=== PATIENT | male | born 1960 | race Caucasian/White ===

== ENCOUNTER 2025-01-10 01:50 | Inpatient (IN) | payer OTHER, MEDICARE, SELFPAY ==
[2025-01-09 22:58] VITALS: BP 154/64
[2025-01-09 23:09] VITALS: BMI 27.6
[2025-01-09] MEDS: TESSALON PERLES 200 MG PO (23:30)
[2025-01-09] MEDS: DUONEB 3 ML INH (23:30)
[2025-01-09 23:51] LABS: % Basophils 0.1 % (0-2); % Eosinophils 1.1 % (0-6); % Immature Granulocytes 0.3 % (0-0.5); % Lymphocytes 15.7 % (20.5-51.1); % Monocytes 14.9 % (1.7-9.3); % Neutrophils 67.9 % (42.2-75.2); Absolute Eosinophils 0.1 10^3/uL (0-0.7); Absolute Lymphocytes 1.1 10^3/uL (1.2-3.4); Absolute Monocytes 1.1 10^3/uL (0.1-0.6); Absolute Neutrophils 4.8 10^3/uL (1.4-6.5); Hematocrit 43.4 % (39.0-52.0); Hemoglobin 14.8 g/dL (13.0-18.0); Mean Corp Hgb Conc. 34.1 g/dL (33.0-37.0); Mean Corpuscular Hgb 31.8 pg (27.0-31.0); Mean Corpuscular Volume 93.1 fL (80.0-94.0); Mean Platelet Volume 11.2 fL (7.4-10.4); Nucleated Red Blood Cells % 0 % (-); Platelet Count 215 10^3/uL (130-400); Red Blood Cell Count 4.66 10^6/uL (4.70-6.10); Red Cell Dist. Width 12.5 % (11.5-14.5); White Blood Cell Count 7.1 10^3/uL (4.8-10.8)
[2025-01-09 23:53] LABS: ALT (SGPT) 40 U/L (0-50); AST (SGOT) 57 U/L (17-59); Albumin 4.3 g/dl (3.5-5.0); Alkaline Phosphatase 97 U/L (38-126); Blood Urea Nitrogen 19 mg/dl (9-20); Calcium 9.6 mg/dl (8.4-10.2); Carbon Dioxide 27 mmol/L (22-30); Chloride 101 mmol/L (98-107); Estimated Creatinine Clearance 69 ml/min; Glucose 109 mg/dl (70-99); Potassium 4.4 mmol/L (3.5-5.1); Sodium 137 mmol/L (135-145); Total Bilirubin 0.9 mg/dl (0.2-1.3); Total Protein 7.1 g/dl (6.3-8.2); eGFR > 60.00
[2025-01-10] VITALS (18 sets, daily range): BP systolic 106–177; BP diastolic 47–91; BMI 27.6
[2025-01-10 00:07] LABS: Troponin I 0.132 ng/ml
--- NOTE | 2025-01-10 00:17 | ED.GENMED ---
History of Present Illness
General
Chief Complaint: Cough
Source: patient
Exam Limitations: none
Time Seen by Provider: 01/09/25 23:17
Nursing documentation reviewed up to this point in time: agreed with
History of Present Illness
History of Present Illness:
This is a 64-year-old gentleman who has history of insulin requiring diabetes, CAD with prior history of PTCA with stents, hypertension, hyperlipidemia, prior history of pneumonia, GERD. Remote history of multiple trauma after falling out of a tree
2008 with multiple thoracic vertebral fractures requiring surgical repair.
He presents with 4-day history of cough, nasal congestion, generalized aches and chills. Exposed to others with similar symptoms earlier in the week.
Evaluated at urgent care yesterday and tested positive for influenza, started on Tamiflu yesterday.
He continues with significant hacking nonproductive cough with paroxysms of prolonged cough causing shortness of breath, nausea, gagging and significantly poor sleep.
He does note some anterior chest discomfort only noted with coughing.
No leg pain or swelling.
He admits to moderate fatigue but no dizziness nor lightheadedness, no neck nor back pain. No history of chronic lung disease.
He does have history of CAD but denies history of CHF, no history of valvular disorder.
He states his blood sugars are generally well-controlled. Has a CGM. Hemoglobin A1c generally runs 6.9-7.
Past History
Past History
ED Past Medical History: CAD (2 stents), GERD, HTN, Hypercholesterolemia, IDDM, Other (fx of cervical and thoracic spine-multiple trauma after falling from tree 2008) and Other (traumatic accident fx back and neck in hospital 3 mos [facility] ever since
then has had 'something neurologically that I've had this muscular issue in my chest.)
ED Past Surgical History: Cardiac (PTCA with stent x 2), Orthopedic (Cervical and thoracic vertebral fracture repair) and Other (trach, g-tube, fusion of spine-2009/multiple trauma)
Social History
Tobacco: Non-smoker
Alcohol: Occasional
Drug: None
Personal: Single
Living: with family
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
Family History
Family History: Other (Noncontributory)
Phy Exam
Physical Exam
Physical Exam:
GENERAL: 64-year-old gentleman appears his stated age, awake and alert, appears in mild to moderate distress with very frequent hacking cough. Mild dyspnea. Room air pulse ox 91%. Oral temperature 98.7 �F
EYE: pupils equal and reactive. anicteric
NECK: Supple, nontender, no meningismus, no significant adenopathy. No JVD.
ENT: oral mucosa is moist. Scant clear rhinorrhea.
CARDIAC: Regular rate and rhythm. no murmur.
LUNGS: Mild resting tachypnea, frequent hacking nonproductive cough. Fine rhonchi at bases with scattered expiratory wheezing bilaterally
ABDOMEN: Soft, nondistended, without focal tenderness, normoactive BS.
NEUROLOGICAL: Alert and oriented x3, no focal neuro deficits.
SKIN: Mildly hot to touch and dry, normal color, skin intact. No rash.
MUSCULOSKELETAL: No C/C/E. peripheral pulses are full and equal b/l. No palpable tenderness.
PSYCH: Normal and appropriate interaction.
Sepsis
Sepsis Screening
Sepsis Assessment: Sepsis Ruled Out
Sepsis Screen
Sepsis Screen: Sepsis Ruled Out
Date: 01/10/25
Time: 00:40
Course
Orders/Labs/Results
Orders:
Orders
01/09/25 23:27
Benzonatate [Tessalon Perles] 200 mg PO NOW STA
Ipratropium/Albuterol Sulfate [Duoneb] 3 ml INH R NOW STA
CR Chest - 2 Views Urgent
Comment:
Reason For Exam: cough, SOB, flu (+)
01/09/25 23:34
Complete Blood Count/With Diff Urgent
Comprehensive Metabolic Panel Urgent
NT-proBNP Urgent
Troponin I Urgent
01/10/25 00:13
Electrocardiogram (*1) Urgent
Reason for Study: Shortness of Breath
EKG- Treatment ONCE
01/10/25 00:36
Albuterol Sulfate [Ventolin Nebules] 7.5 mg INH R NOW STA
Azithromycin [Zithromax] 500 mg PO NOW STA
CefTRIAXone [Rocephin] 2,000 mg IV NOW STA
Dexamethasone Sod Phosphate [Decadron] 10 mg IV NOW STA
Guaifenesin/Codeine Solution [Robitussin AC] 10 ml PO NOW STA
01/10/25 00:44
Sterile Water [Sterile Water For Injection] 10 ml .ROUTE .STK-MED ONE
01/10/25 00:45
Acetaminophen [Tylenol] 1,000 mg PO NOW STA
01/10/25 01:36
Admit/Transfer Patient As Directed
Co-Sign Provider:
Level of Care: Inpatient admission
Assign to:: Telemetry
Physician / Group: Tommy
Diagnosis: Influenza Pneumonia
Reason for Telemetry: Chest Pain syndromes
Date to Stop Telemetry: 01/12/25
Time to Stop Telemetry: 11:00
Reason for Hospitalization: Influenza Pneumonia
Expected length of stay greater than two midnights?: Yes
ELOS- Estimated Length of Stay in days: 3
I certify the patient meets the requirements for IP care: Yes
PRN Pain Medication Management As Directed
May give lesser potent ordered pain med per pt: Yes
preference::
Protocol:: Medication orders for pain may be administered in a
manner that supports deferring to patient preference
when the pt is:
- Requesting an ordered lesser potent pain medication.
Least to most potent pain medications are defined
as: acetaminophen < NSAID < tramadol < opioids
(morphine, oxycodone, hydromorphone).
- Requesting a lesser dose of the same medication IF
ORDERED.
- Requesting a less intrusive route of administration
if both routes are prescribed by the provider (PO <
IV).
01/10/25 01:38
Code Status As Directed
Resuscitation Status: Full Code
01/10/25 02:33
Acetaminophen [Tylenol] 650 mg PO Q4HPRN PRN
Albuterol [ProAIR HFA INHALER] 2 puff INH R Q4HPRN PRN
CefTRIAXone [Rocephin] 1,000 mg IV Q24H
Dextrose 50%-Water [Dextrose 50% Syringe] 12.5 grams IV T70TGRT PRN
Glucagon [GlucaGen] 1 mg IM PRN PRN
Promethazine/Codeine [Phenergan with Codeine Syrup] 5 ml PO Q4HPRN PRN
01/10/25 02:33
CARDIOLOGY CONSULT Routine
Consulting Provider: Yoni Bazan
Was physician already notified: No
Reason for consult: Abnormal Trop, CAD
Consult Notification Routine
Specialty to Notify: Cardiology
Activity As Directed
Activity Level: Ambulate
Bedside Glucose Monitoring As Directed
Frequency: AC&HS
Additional Instructions:: Change to q6h if pt on TPN, tube feeding or not eating
EKG with chest pain [ECG as needed] As Directed
ECG as needed for:: Chest Pain
I/O [Intake/ Output] As Directed
Frequency: Per unit guidelines
Precautions As Directed
Type of Precautions: Droplet
Vital Signs As Directed
Frequency: Per unit guidelines
Weight As Directed
Frequency: Daily
Oxygen Therapy [O2 Therapy] [RESP] Routine
Titrate/Wean O2 to maintain O2 sat greater than (%): 94
DX Deep Vein Thrombosis Video Routine
01/10/25 02:49
Troponin I Q6H
01/10/25 05:36
Basic Metabolic Panel IN AM
Complete Blood Count/No Diff IN AM
Glycohemoglobin (HgbA1c) IN AM
01/10/25 06:00
EKG [Electrocardiogram (*1)] IN AM
Reason for Study: Chest Pain
2000 calorie (17 carb) Diabetic
At Your Request: Full Participation
01/10/25 07:30
Insulin Aspart Corrective Low [Novolog Flexpen-Low Resistance] See Protocol SC AC
01/10/25 08:00
Aspirin Chewable [Low Strength Aspirin] 81 mg PO DAILY
Atorvastatin [Lipitor] 20 mg PO DAILY
Doxycycline [Vibramycin] 100 mg PO Q12
Guaifenesin [Mucinex] 1,200 mg PO Q12
Losartan [Cozaar] 25 mg PO DAILY
Oseltamivir Phosphate [Tamiflu] 75 mg PO BID
01/10/25 08:33
Troponin I Q6H
01/10/25 14:33
Troponin I Q6H
01/10/25 18:00
Enoxaparin Sodium [Lovenox] 40 mg SC QPM
01/12/25 11:00
DC Protocol for Telemetry ONCE
Abnormal Lab Results
01/09/25
23:34
RBC 4.66 L 10^6/uL
(4.70-6.10)
MCH 31.8 H pg
(27.0-31.0)
MPV 11.2 H fL
(7.4-10.4)
Absolute Lymphs (auto) 1.1 L 10^3/uL
(1.2-3.4)
Absolute Monos (auto) 1.1 H 10^3/uL
(0.1-0.6)
Lymphocytes % 15.7 L %
(20.5-51.1)
Monocytes % 14.9 H %
(1.7-9.3)
Glucose 109 H mg/dl
(70-99)
Troponin I 0.132 H* ng/ml
01/09/25 23:34
01/09/25 23:34
Vital Signs
Temp: 99.9 F
Initial and Last Documented VS:
Initial Vital Signs
Pulse Resp BP Pulse Ox
86 28 154/64 91
01/09/25 22:58 01/09/25 22:58 01/09/25 22:58 01/09/25 22:58
Last Documented Vital Signs
Temp Pulse Resp BP Pulse Ox
99.9 F 75 22 139/66 99
01/10/25 00:45 01/10/25 06:01 01/10/25 06:01 01/10/25 06:01 01/10/25 06:01
MDM/Problems Addressed
Differential Diagnosis Includes:
Patient presents with 4-day history of significant cough, shortness of breath tested positive for influenza yesterday.
Concern for secondary bacterial pneumonia, viral pneumonitis. With history of CAD, hyperlipidemia, diabetes must consider CHF as contributing factor to cough.
Will trial DuoNeb nebulizer and Tessalon Perle.
Will check labs including troponin, BNP and will check chest x-ray.
Chronic conditions affecting care: DM, HTN and CAD
*Radiology
Radiology exam reviewed: preliminary read by ED provider (Chest x-ray shows hazy focal infiltrate right lower lobe. Also note of questionable small nodular density left lower lobe. Normal heart size.)
*Pulse Oximetry
Patient hypoxic: no ( Borderline hypoxia at 91% at rest)
*EKG
Interpreted by ED Provider?: Yes
Comparison EKG: no changes (Unchanged from previous June 2021)
Rate: normal
Rhythm: sinus
[place]: normal axis
Interval: normal interval
QRS Pattern: normal QRS
Ischemia: no ischemia
*[employer] Interpretation
Rate: normal
Interpretation: normal
Rhythm: sinus
*Critical Care Note
Total Time (30-74mins, 75-104mins- exclusive of procedures): Not Applicable
Update Note
Update Note:
00:40
Patient notes only mild temporary improvement in cough after nebulizer treatment and Tessalon Perles.
Continues with significant hacking cough with resting tachypnea and room air pulse ox 91%.
Chest x-ray shows hazy focal infiltrate right lower lobe as well as a questionable small nodular density left lower lobe.
Labs are notable for normal BNP at 50 but troponin mildly elevated at 0.132.
EKG is unremarkable, similar and unchanged to previous 2020.
Repeat lung exam reveals improvement in air movement but continues with expiratory wheezing bilaterally and bilateral lower lobe rhonchi.
Will initiate IV antibiotics for coverage of potential bacterial community-acquired pneumonia. Will add Decadron for wheezing/reactive airway disease.
Will give additional nebulizer treatment and will trial a dose of Robitussin with codeine for cough.
He is noted to have low-grade fever 99.9 �F. Will give a dose of Tylenol.
Will admit to hospitalist service.
ED Attending Note
-
Portions of this chart may have been created with voice recognition software.� Occasional wrong word or��sound alike� substitutions may have occurred due to the inherent limitations of voice recognition software.
Discharge Plan
Departure
Patient Disposition: Admit
Date of Disposition: 01/10/25
Time of Disposition: 00:41
Admit to: Med/Surg
Admit to doctor: Tommy
Presentation/result/management discussed w/ accepting MD/DO: Hospitalist
Condition: Fair
Discharge Problem:
Influenza A, Community acquired pneumonia, Acute hypoxemic respiratory failure, Elevated troponin I level
Interventions
Interventions:
*Risk Screen - Suicide Last Done: 01/09/25 22:58
*General Assessment Last Done: 01/09/25 23:18
*Neglect/Abuse Screening Last Done: 01/09/25 22:58
ED- Fall Risk Assessment Last Done: 01/09/25 23:37
*ED COVID-19 Vaccine History Last Done: 01/09/25 23:18
ED- Pulmonary Assessment Last Done: 01/09/25 23:37
[2025-01-10] MEDS: ZITHROMAX 500 MG PO (00:46)
[2025-01-10] MEDS: VENTOLIN NEBULES 7.5 MG INH (00:47)
[2025-01-10] MEDS: DECADRON 10 MG IV (00:47)
[2025-01-10] MEDS: ROCEPHIN 2000 MG IV (00:47)
[2025-01-10] MEDS: ROBITUSSIN AC 10 ML PO (00:47)
[2025-01-10] MEDS: TYLENOL 1000 MG PO (00:59)
--- NOTE | 2025-01-10 01:42 | HPS.HSE ---
Family Physician
-
Family Physician: Afsaneh Sanchez
Chief Complaint
-
Cough, SOB
History of Present Illness
Patient is a 64y M with PMH significant for ASCVD and DM-I who presents to ED complaining of cough and SOB. Patient states that he started with a cough on Friday. He has had general malaise, myalgias and fatigue. He has noted worsening SOB
and has been unable to sleep due to constant coughing. He presented to Urgent Care yesterday where CXR was reportedly unremarkable, but he tested positive for influenza A. He was started on Tamiflu and has taken 3 doses of this thus far.
Patient felt even worse this evening and presented to the ED for evaluation.
Medical History
Past Medical History
Past Medical History: Reports Other
Additional Past Medical History:
ASCVD
Hypertension
DM-I
GERD
Past Surgical History: Reports Other
Additional Past Surgical History:
PTCA with Stent x 2
Thoracic Fusion (trauma / fractures)
Social History
Tobacco: Non-smoker
Alcohol: Occasional
Drug: None
Family History
Family History: Not pertinent
Allergies / Home Medications
Allergies reflects when Allergies were last updated in [employer].
Home Medications with original date entered in [employer]
Allergy/Medication List:
Allergies
Allergy/AdvReac Type Severity Reaction Status Date / Time
No Known Allergies Allergy Verified 01/10/25 01:21
Home Medications
atorvastatin 20 mg tablet 20 mg PO DAILY 01/13/11
insulin glargine 100 unit/mL subcutaneous solution (Lantus U-100 Insulin) 18 units SC DAILY 01/13/11
insulin lispro 100 unit/mL subcutaneous solution (Humalog U-100 Insulin) 0 - 15 unit SC TID PRN sliding scale coverage 01/13/11
losartan 25 mg tablet 25 mg PO DAILY 08/21/14
aspirin 81 mg tablet 81 mg PO DAILY 01/10/25
Review of Systems
-
History Source: Patient
A 12 point ROS was completed and negative except as noted: Yes
Constitutional: Reports Fever, Fatigue and Chills
EENT: Denies Sore Throat
Respiratory: Reports Cough and Trouble Breathing
Cardiac: Reports Chest Pain (chest 'tightness' with cough); Denies Palpitations or Syncope
Abdomen/GI: Denies Abdominal Pain, Nausea, Vomiting or Diarrhea
: Denies Dysuria or Frequency
Musculoskeletal: Denies Joint Pain or Edema
Neurological: Denies Dizzy or Headache
Psych: Denies Depression or Anxiety
Physical Exam
Vital Signs
Vital Signs
Temp Pulse Resp BP Pulse Ox
99.9 F 93 22 124/89 93
01/10/25 00:45 01/10/25 01:35 01/10/25 00:26 01/10/25 00:06 01/10/25 00:06
Physical Exam
General: Other (64y M in mild distress due to cough / dyspnea.)
HEENT: Moist mucous membranes and PERRLA
Respiratory: Other (Scattered coarse breath sounds. Few wheezes.)
Cardiac: S1/S2, Regular Rhythm and Tachycardia; No Murmur
GI: Soft, Non Tender, Non Distended and Normal Bowel Sounds
Musculoskeletal: No Clubbing, No Cyanosis and No Edema
Neuro: AO x 3
Laboratory Results
-
01/09/25 23:34
01/09/25 23:34
Laboratory Results
Total Bilirubin 0.9 mg/dl (0.2-1.3) 01/09/25 23:34
AST 57 U/L (17-59) 01/09/25 23:34
ALT 40 U/L (0-50) 01/09/25 23:34
Alkaline Phosphatase 97 U/L (38-126) 01/09/25 23:34
Troponin I 0.132 ng/ml H* 01/09/25 23:34
Impression/Plan
-
A/P: Patient is a 64y M with PMH significant for ASCVD and DM-I who presents to ED complaining of cough and SOB x several days.
Influenza A
Pneumonia
Acute Hypoxemic Respiratory Insufficiency secondary to the above
- Admit for further evaluation and treatment.
- Continue Tamiflu.
- Supportive care with O2, albuterol, mucolytics, etc.
- Cover with abx for now given possible R medial base infiltrate / immunocompromise / etc.
- Follow for clinical improvement.
ASCVD
Abnormal Troponin
- Some chest tightness associated with cough / dyspnea.
- EKG with non-specific ST-T changes in the lateral leads.
- Suspect that this is non-ischemic myocardial injury secondary to acute illness.
- Given CAD history will continue to follow troponin.
- Continue daily ASA, statin, etc.
- Cardiology evaluation.
DM-I
- Stable. Continue basal insulin.
- Follow glucose and cover with SSI as needed.
- Update A1C.
Benign Hypertension
- Stable. Continue losartan.
DVT Prophylaxis: Lovenox
Code Status: Full
[2025-01-10 03:40] LABS: Troponin I 0.094 ng/ml
[2025-01-10 05:58] LABS: Hematocrit 38.4 % (39.0-52.0); Hemoglobin 13.3 g/dL (13.0-18.0); Mean Corp Hgb Conc. 34.6 g/dL (33.0-37.0); Mean Corpuscular Hgb 32.4 pg (27.0-31.0); Mean Corpuscular Volume 93.7 fL (80.0-94.0); Mean Platelet Volume 11.4 fL (7.4-10.4); Platelet Count 191 10^3/uL (130-400); Red Cell Dist. Width 12.4 % (11.5-14.5); White Blood Cell Count 6.5 10^3/uL (4.8-10.8)
[2025-01-10 06:16] LABS: Blood Urea Nitrogen 20 mg/dl (9-20); Calcium 9.3 mg/dl (8.4-10.2); Carbon Dioxide 22 mmol/L (22-30); Chloride 99 mmol/L (98-107); Estimated Creatinine Clearance 69 ml/min; Glucose 204 mg/dl (70-99); Potassium 4.4 mmol/L (3.5-5.1); Sodium 135 mmol/L (135-145); eGFR > 60.00
[2025-01-10] MEDS: PHENERGAN WITH CODEINE SYRUP 5 ML PO ×3 (06:22→23:24)
[2025-01-10] MEDS: TAMIFLU 75 MG PO ×2 (08:02→19:02)
[2025-01-10] MEDS: COZAAR 25 MG PO (08:02)
[2025-01-10] MEDS: MUCINEX 1200 MG PO ×2 (08:02→19:02)
[2025-01-10] MEDS: LIPITOR 20 MG PO (08:03)
[2025-01-10] MEDS: LOW STRENGTH ASPIRIN 81 MG PO (08:03)
[2025-01-10] MEDS: VIBRAMYCIN 100 MG PO ×2 (08:04→19:02)
[2025-01-10 08:09] LABS: Glucose - Point of Care 233 mg/dl (70-99)
--- NOTE | 2025-01-10 08:17 | W.PN.HOSP.TC ---
Today's Communication/Plan
-
See plan
Assessment / Plan
Assessment / Plan
Physical Exam
General: Not in acute distress
HEENT: Moist mucous membranes
Respiratory: Scattered coarse breath sounds bilaterally. Few wheezes.
Cardiac: S1/S2, Regular Rhythm and Regular Rate
GI: Soft, Non Tender, Non Distended and Normal Bowel Sounds
Musculoskeletal: No Cyanosis and No Edema
Neuro: AAO x 3
Assessment/Plan
Patient is a 64y M with PMH significant for ASCVD and DM-I who presents to ED complaining of cough and SOB x several days.
Influenza A
Pneumonia
Acute Hypoxemic Respiratory Insufficiency secondary to the above
- Continue Tamiflu.
- Supportive care with O2, albuterol, mucolytics, etc.
- Cover with antibiotics for now given possible right medial base infiltrate / immunocompromise / etc.
- Follow for clinical improvement.
ASCVD
Abnormal Troponin
- Some chest tightness associated with cough / dyspnea.
- EKG with non-specific ST-T changes in the lateral leads.
- Suspect that this is non-ischemic myocardial injury secondary to acute illness.
- Given CAD history will continue to follow troponin.
- Continue daily ASA, statin, etc.
- Check echocardiogram.
- Cardiology evaluation.
DM-I
- Stable. Continue basal insulin.
- Follow glucose and cover with SSI as needed.
- A1C 7.2%
Benign Hypertension
- Stable. Continue losartan.
DVT Prophylaxis: Lovenox
Code Status: Full Code
Anticipated Discharge: 24 - 48 hours
Subjective/Interval History
-
Date of Service: January 10, 2025
Patient was seen and examined. He reported feeling okay, he said his cough is better, and he denied any new significant symptoms or complaints.
Objective Data
-
Labs:
Laboratory Results
01/09/25 01/10/25
23:34 05:36
WBC 7.1 6.5
Hgb 14.8 13.3
Hct 43.4 38.4 L
Plt Count 215 191
Sodium 137 135
Potassium 4.4 4.4
Chloride 101 99
Carbon Dioxide 27 22
BUN 19 20
Creatinine 0.9 0.9
Glucose 109 H 204 H
Calcium 9.6 9.3
Total Bilirubin 0.9
AST 57
ALT 40
Alkaline Phosphatase 97
Vital Signs:
Vital Signs
Temp Pulse Resp BP Pulse Ox
99.9 F 75 22 139/66 99
01/10/25 00:45 01/10/25 06:01 01/10/25 06:01 01/10/25 06:01 01/10/25 06:01
[2025-01-10] MEDS: LANTUS 0.18 UNITS SC (08:48)
[2025-01-10] MEDS: NOVOLOG FLEXPEN-LOW RESISTANCE 12 UNITS SC (08:49)
--- NOTE | 2025-01-10 08:54 | PTCARENOTE ---
pt requesting to give his own amount of insulin. okd by . bs 233. 12 units novolog given. 14 units lantus given. will monitor.
[2025-01-10 08:57] LABS: Troponin I 0.077 ng/ml
[2025-01-10 09:02] LABS: Glycohemoglobin (HgbA1c) 7.2 % (4.0-5.6)
--- NOTE | 2025-01-10 11:00 | CON.CAR ---
Addendum entered and electronically signed by Nicole Park DO 01/11/25 05:57:
I saw and examined the patient.
The Packaging Specialist's note was reviewed and I agree with the note.
Comment: Patient was seen and examined in ED 19 on 01/10/2025 with cardiac PA. Patient's son was at bedside during exam. This is a late entry. Patient came to [facility] with known influenza and increasing SOB and was admitted, cardiology is now
consulted for elevated Troponin. Patient receives all of his care at [facility], but was previously transferred to from [facility] in 1999 in the setting of ACS and he received 2 BMS to the LAD at that time and continues with regular cardiology care with
Garc[facility] at [facility] at [facility]. Patient saw Dr. Mariano within the last couple of months and no changes were made and he has had periodic echoes and stress tests and has not required more invasive evaluations. Denies chest pain except when coughing. He feels
SOB at rest and is on oxygen and being treated for possible PNA.
General: ill appearing on nc O2/mask. + cough
Heart: Regular, positive S1/S2, 2/6SM
Lungs: bronchovesicular BS with rhonchi and wheeze
Abd: Positive BS, NT/ND, neg rebound/rigidity/guarding
Ext: Negative cyanosis/clubbing/edema
Neuro: nonfocal
PLAN:
Positive for influenza A 01/09/25
-supportive management
-O2 supplementation as needed
Elevated Troponin with known CAD s/p 2.5 mm Tetra BMS and 3.0 mm Tristar BMS to prox to mid LAD at 11/07/00HTN
-No CP and downward trending
-Plan for OP ischemic evaluation
-Continue ASA, Atorvastatin, losartan
-Check lipid profile
-Check echocardiogram
DM I
-Patient management with MDI/Dexcom
Original Note:
Consultation
Consultation Request
Date/Time Consultation Requested: 01/10/25 at 0233
Date/Time Consultation Performed: 01/10/25 at 1043
Requesting Provider: Dr. Land
Performing Provider: Dr. Park
Reason for Consultation: Chest pain with cough, elevated Troponin
Medical History
-
History of Present Illness:
Patient came to [facility] with known influenza and increasing SOB and was admitted, cardiology is now consulted for elevated Troponin. Patient met for lunch with a coworker and a client who had flown in from [place] last week and the client appeared
sick with runny nose and within days his coworker was sick and tested positive for flu. Patient started to feel sick at the end of last week and later tested positive for flu on 01/08/25. Patient was started on Tamiflu by the urgent care he tested
positive for flu at, but didn't feel any better and was more SOB so he went to [facility] ER yesterday, but the wait was too long so he came to . Patient receives all of his care at [facility], but was previously transferred to from [facility] in 1999 in the
setting of ACS and he received 2 BMS to the LAD at that time and continues with regular cardiology care with Dr. Mariano at [facility] at [facility]. Patient saw Dr. Mariano within the last couple of months and no changes were made and he has had periodic echoes
and stress tests and has not required more invasive evaluations. Denies chest pain except when coughing. He feels SOB at rest and is on oxygen and being treated for possible PNA.
PMH:
CAD
s/p 2.5 mm Tetra BMS and 3.0 mm Tristar BMS to prox to mid LAD at 11/07/00
HTN
Hyperlipidemia
DM I
Past Medical History
Past Medical History: Other (in HPI)
Past Surgical History: Cardiac (PCI 1999) and Orthopedic
Social History
Tobacco: Non-Smoker
Alcohol: None
Drug: None
Employment: Employed
Family History
Family History: Diabetes
Allergies / Home Medications
Allergy/AdvReac Type Severity Reaction Status Date / Time
No Known Allergies Allergy Verified 01/10/25 01:21
�Medication �Instructions �Recorded �Confirmed �Type
atorvastatin 20 mg tablet 20 mg PO DAILY 01/13/11 01/10/25 History
losartan 25 mg tablet 25 mg PO DAILY 08/21/14 01/10/25 History
albuterol sulfate 90 mcg/actuation 2 puff inhalation Q6H PRN sob 01/10/25 01/10/25 History
aerosol inhaler
aspirin 81 mg tablet,delayed 81 mg PO DAILY 01/10/25 01/10/25 History
release
insulin aspart U-100 100 unit/mL 5 unit SC AC 01/10/25 01/10/25 History
(3 mL) subcutaneous pen
insulin degludec 100 unit/mL (3 14 unit SC DAILY 01/10/25 01/10/25 History
mL) subcutaneous pen (Tresiba
FlexTouch U-100 insulin)
oseltamivir 75 mg capsule 75 mg PO BID 01/10/25 01/10/25 History
Review of Systems
-
History Source: Patient
All other systems: Negative unless noted
Physical Exam
Vital Signs
Temp Pulse Resp BP Pulse Ox
97.6 F 59 21 146/72 98
01/10/25 07:52 01/10/25 10:45 01/10/25 10:00 01/10/25 10:00 01/10/25 10:45
GEN: NAD. AAOx3
HEENT: EOMI, MMM
LUNGS: 2 L NC. Coarse throughout with nonproductive cough. No rales
CV: SR on tele. Reg, S1/S2, no murmur
ABD: soft, BS+, NT, ND
EXT: No clubbing, cyanosis, lesions or edema B/L
NEURO: Gross non-focal
SKIN: Warm, dry and pink. No rash
Lab Results
01/10/25 05:36
01/10/25 05:36
Troponin I 0.077 ng/ml H* 01/10/25 08:22
Stm-C-Wjeaoetwpoj Pept 50.0 pg/ml 01/09/25 23:34
Impression / Plan
-
PCP: Dr. Afsaneh Sanchez
Cardiology: Dr. Mariano
Impression:
Admitted with hypoxia and influenza 01/09/25
Positive for influenza A 01/09/25
Acute hypoxic respiratory insufficiency
Elevated Troponin
CAD
s/p 2.5 mm Tetra BMS and 3.0 mm Tristar BMS to prox to mid LAD at 11/07/00
HTN
Hyperlipidemia
DM I
Plan:
-Patient came to [facility] with known influenza and increasing SOB and was admitted, cardiology is now consulted for elevated Troponin. Patient met for lunch with a coworker and a client who had flown in from [place] last week and the client appeared
sick with runny nose and within days his coworker was sick and tested positive for flu. Patient started to feel sick at the end of last week and later tested positive for flu on 01/08/25. Patient was started on Tamiflu by the urgent care he tested
positive for flu at, but didn't feel any better and was more SOB so he went to [facility] ER yesterday, but the wait was too long so he came to . Patient receives all of his care at [facility], but was previously transferred to from [facility] in 1999 in the
setting of ACS and he received 2 BMS to the LAD at that time and continues with regular cardiology care with Dr. Mariano at [facility] at [facility]. Patient saw Dr. Mariano within the last couple of months and no changes were made and he has had periodic echoes
and stress tests and has not required more invasive evaluations. Denies chest pain except when coughing. He feels SOB at rest and is on oxygen and being treated for possible PNA.
-ECG reviewed by me with SR and no acute ischemic changes
-Troponin levels reviewed with patient including normal levels, info written on white board in patient's room. Troponin was 0.13 on admission and trended down thereafter.
-Check echo, ordered by me
-Pending echo results would recommend outpatient ischemic evaluation.
-Called patient's primary research computing specialist to request records.
-Cont aspirin 81 mg daily
-Follow BP. BP 146/72 after his usual dose of losartan 25 mg this morning.
[2025-01-10 13:07] LABS: Glucose - Point of Care 193 mg/dl (70-99)
[2025-01-10] MEDS: NOVOLOG FLEXPEN-LOW RESISTANCE SC ×2 (13:41→17:54)
[2025-01-10 14:56] LABS: Troponin I 0.061 ng/ml
--- NOTE | 2025-01-10 15:30 | PTCARENOTE ---
Pt was transferred from ED to . Pt AAOx3, able to make his needs known. Vs documented. Denies pain at this time. No s/s of distress noted. Plan of care ongoing. Call plunkett within reach.
[2025-01-10 17:54] LABS: Glucose - Point of Care 115 mg/dl (70-99)
[2025-01-10] MEDS: LOVENOX SC (18:01)
[2025-01-10 21:49] LABS: Glucose - Point of Care 118 mg/dl (70-99)
[2025-01-10] MEDS: ROCEPHIN 1000 MG IV (23:24)
[2025-01-10] MEDS: STERILE WATER FOR INJECTION 10 ML IV (23:24)
[2025-01-11] MEDS: PHENERGAN WITH CODEINE SYRUP 5 ML PO ×5 (04:23→21:09)
[2025-01-11 06:00] VITALS: BMI 27.4
[2025-01-11 07:14] VITALS: BP 117/58
--- NOTE | 2025-01-11 07:38 | PTCARENOTE ---
Addendum entered by Amy Payton RN 01/11/25 07:56:
Blood sugar 206 on accucheck machine taken by tech. Insulin administration sheet given to patient to record carb intake/bolus administration at bedside.
Original Note:
This RN went into patient's room for 0800 medications including scheduled lantus and sliding scale insulin coverage, patient stated he already administered his own lantus and insulin coverage for breakfast, says he was given okay to do so by doctor
yesterday. Patient states his own dexcom reads 190, and he administered scheduled lantus dose and 15 units short acting insulin for breakfast. This RN clarified with who stated it is okay for patient to administer his own insulin, sugars to be
confirmed with our accucheck machine ACHS.
[2025-01-11] MEDS: NOVOLOG FLEXPEN SC ×3 (07:41→17:12)
[2025-01-11] MEDS: LANTUS SC (07:42)
[2025-01-11] MEDS: NOVOLOG FLEXPEN-LOW RESISTANCE SC ×3 (07:42→18:13)
[2025-01-11 07:45] LABS: Hemoglobin 14.6 g/dL (13.0-18.0); Mean Corp Hgb Conc. 34.8 g/dL (33.0-37.0); Mean Corpuscular Hgb 31.9 pg (27.0-31.0); Mean Corpuscular Volume 91.7 fL (80.0-94.0); Mean Platelet Volume 11.8 fL (7.4-10.4); Platelet Count 225 10^3/uL (130-400); Red Blood Cell Count 4.58 10^6/uL (4.70-6.10); Red Cell Dist. Width 12.2 % (11.5-14.5); White Blood Cell Count 9.5 10^3/uL (4.8-10.8)
[2025-01-11 07:54] LABS: Glucose - Point of Care 206 mg/dl (70-99)
[2025-01-11] MEDS: VIBRAMYCIN 100 MG PO ×2 (08:28→19:32)
[2025-01-11] MEDS: MUCINEX 1200 MG PO ×2 (08:28→19:32)
[2025-01-11] MEDS: COZAAR 25 MG PO (08:28)
[2025-01-11] MEDS: LOW STRENGTH ASPIRIN 81 MG PO (08:28)
[2025-01-11] MEDS: LIPITOR 20 MG PO (08:28)
[2025-01-11] MEDS: TAMIFLU 75 MG PO ×2 (08:28→19:32)
[2025-01-11 08:30] LABS: Blood Urea Nitrogen 20 mg/dl (9-20); Calcium 9.6 mg/dl (8.4-10.2); Carbon Dioxide 28 mmol/L (22-30); Chloride 98 mmol/L (98-107); Estimated Creatinine Clearance 77 ml/min; Glucose 185 mg/dl (70-99); Magnesium 1.9 mg/dl (1.6-2.3); Sodium 136 mmol/L (135-145); eGFR > 60.00
[2025-01-11] MEDS: TESSALON PERLES 200 MG PO ×2 (10:31→18:36)
--- NOTE | 2025-01-11 10:52 | CM ---
Patient seen bedside.
+ Flu
IA completed.
Patient lives with elderly mother in a 2 story home with 2 steps to enter.
patient independent prior to admission, works and drives.
No hx VN or asistive devices.
PCP: Dr Sanchez
Pharmacy: [facility]
Plan: home no needs anticipated.
[2025-01-11 11:45] VITALS: BP 113/57
--- NOTE | 2025-01-11 12:35 | W.PN.HOSP.TC ---
Today's Communication/Plan
-
Continue Tamiflu, pulmonary toilet, Duoneb QID, wean oxygen as tolerated
Assessment / Plan
Assessment / Plan
Physical Exam
General: Not in acute distress
HEENT: Moist mucous membranes
Respiratory: Scattered coarse breath sounds bilaterally. Few wheezes.
Cardiac: S1/S2, Regular Rhythm and Regular Rate
GI: Soft, Non Tender, Non Distended and Normal Bowel Sounds
Musculoskeletal: No Cyanosis and No Edema
Neuro: AAO x 3
Assessment/Plan
Patient is a 64y M with PMH significant for ASCVD and DM-I who presents to ED complaining of cough and SOB x several days.
Influenza A
Pneumonia
Acute Hypoxemic Respiratory Insufficiency secondary to the above
- Still requiring oxygen
- Continue Tamiflu.
- Supportive care with O2, albuterol, mucolytics, etc.
- Cover with antibiotics for now given possible right medial base infiltrate / immunocompromise / etc.
- Follow for clinical improvement.
- Repeat CXR in the morning
ASCVD
Abnormal Troponin
- Some chest tightness associated with cough / dyspnea.
- EKG with non-specific ST-T changes in the lateral leads.
- Suspect that this is non-ischemic myocardial injury secondary to acute illness.
- Given CAD history will continue to follow troponin.
- Continue daily ASA, statin, etc.
- Echocardiogram with normal left ventricular size, wall thickness and systolic function; no regional wall motion abnormalities; LV ejection fraction 54%; normal right ventricular size and function; moderate to severe
mitral regurgitation; mild tricuspid regurgitation.
- Cardiology evaluation, outpatient ischemic evaluation.
DM-I
- Stable. Continue basal insulin.
- Follow glucose and cover with SSI as needed.
- A1C 7.2%
Benign Hypertension
- Stable. Continue losartan.
DVT Prophylaxis: Lovenox
Code Status: Full Code
Anticipated Discharge: > 48 hours
Subjective/Interval History
-
Date of Service: January 11, 2025
Patient was seen and examined. He reported his dry cough has been bothering him more, could not sleep well due to dry cough.
Objective Data
-
Labs:
Laboratory Results
01/11/25
06:24
WBC 9.5
Hgb 14.6
Hct 42.0
Plt Count 225
Sodium 136
Potassium 5.0
Chloride 98
Carbon Dioxide 28
BUN 20
Creatinine 0.8
Glucose 185 H
Calcium 9.6
Vital Signs:
Vital Signs
Temp Pulse Resp BP Pulse Ox
98.1 F 65 18 117/58 95
01/11/25 07:14 01/11/25 08:28 01/11/25 07:14 01/11/25 08:28 01/11/25 10:44
I&O
01/10/25 01/11/25 01/12/25
06:59 06:59 06:59
Intake Total 480 / 480
Balance 480 / 480
[2025-01-11 12:39] LABS: Glucose - Point of Care 94 mg/dl (70-99)
[2025-01-11 15:26] VITALS: BP 138/56
[2025-01-11] MEDS: DUONEB 3 ML INH ×2 (15:43→19:18)
--- NOTE | 2025-01-11 16:14 | W.PN.CARDCBS ---
Addendum entered and electronically signed by Sae Tripp DO 01/11/25 20:48:
I saw and examined the patient.
The Video Library Assistant's note was reviewed and I agree with the note.
Comment:
Plan:
Discussed outpt follow up for ischemic eval given troponin and reeval of his MR which has worsened compared to his outside echo
Cont tx for flu.
Outpt follow up with [facility]
Please recall if needed
Original Note:
Today's Communication / Plan
-
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
Impression / Plan
-
PCP: Dr. Afsaneh Sanchez
Cardiology: Dr. Mariano
Impression:
Admitted with hypoxia and influenza 01/09/25
Positive for influenza A 01/09/25
Acute hypoxic respiratory insufficiency
Elevated Troponin
CAD
s/p 2.5 mm Tetra BMS and 3.0 mm Tristar BMS to prox to mid LAD at 11/07/00
HTN
Hyperlipidemia
DM I
Echo 01/07/2018: [facility] study, EF 60 to 65%, normal RV size and function, mild to moderate MR, mild to moderate TR with PAP 29 mmHg
Echo 01/10/2025: EF 54%, normal RV size and function, moderate to severe MR, mild TR
Plan:
-Patient expressing frustration at not feeling better and also skepticism about vaccinations.
-From a CV perspective, Troponin was 0.132 on admission and trended down thereafter. Will manage as a nonischemic myocardial injury Troponin elevation
-Patient should follow up with Dr. Mariano for an outpatient stress test, will forward progress notes to [facility]
-EF preserved on echo
-Echo showed moderate to severe MR and was previously mild to moderate MR by last echo at [facility] in 2018. Patient will follow up with Dr. Mariano
-Cont aspirin 81 mg daily
-Outpatient dose of losartan 25 mg has been continued
HPI: Patient came to [facility] with known influenza and increasing SOB and was admitted, cardiology is now consulted for elevated Troponin. Patient met for lunch with a coworker and a client who had flown in from [place] last week and the client
appeared sick with runny nose and within days his coworker was sick and tested positive for flu. Patient started to feel sick at the end of last week and later tested positive for flu on 01/08/25. Patient was started on Tamiflu by the urgent care he
tested positive for flu at, but didn't feel any better and was more SOB so he went to [facility] ER yesterday, but the wait was too long so he came to . Patient receives all of his care at [facility], but was previously transferred to from [facility] in 1999 in the
setting of ACS and he received 2 BMS to the LAD at that time and continues with regular cardiology care with Dr. Mariano at [facility] at [facility]. Patient saw Dr. Mariano within the last couple of months and no changes were made and he has had periodic echoes
and stress tests and has not required more invasive evaluations. Denies chest pain except when coughing. He feels SOB at rest and is on oxygen and being treated for possible PNA.
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
Subjective
Date of Service: January 11, 2025
He is tired of being sick
Objective
Labs:
01/11/25 06:24
01/11/25 06:24
Labs
Hgb 14.6 g/dL (13.0-18.0) 01/11/25 06:24
Hct 42.0 % (39.0-52.0) 01/11/25 06:24
Plt Count 225 10^3/uL (130-400) 01/11/25 06:24
Sodium 136 mmol/L (135-145) 01/11/25 06:24
Potassium 5.0 mmol/L (3.5-5.1) 01/11/25 06:24
BUN 20 mg/dl (9-20) 01/11/25 06:24
Creatinine 0.8 mg/dL (0.7-1.3) 01/11/25 06:24
Glucose 185 mg/dl (70-99) H 01/11/25 06:24
Troponins
01/09/25 01/10/25 01/10/25
23:34 02:49 08:22
Troponin I 0.132 H* 0.094 H* D 0.077 H*
01/10/25
14:23
Troponin I 0.061 H*
Vital Signs and I&O:
Vital Signs
Temp Pulse Resp BP Pulse Ox
98.6 F 86 18 138/56 92
01/11/25 15:26 01/11/25 15:49 01/11/25 15:49 01/11/25 15:26 01/11/25 15:49
Vital Signs
Temp Pulse Resp BP Pulse Ox
98.6 F 86 18 138/56 92
01/11/25 15:26 01/11/25 15:49 01/11/25 15:49 01/11/25 15:26 01/11/25 15:49
Intake & Output
01/09/25 01/10/25 01/11/25 01/12/25
06:59 06:59 06:59 06:59
Intake Total 480 / 480
Balance 480 / 480
Physical Exam
Physical Exam
GEN: AAOx3
HEENT: MMM
LUNGS: RA. No audible wheeze
CV: SR on tele.
ABD:ND
EXT: No edema B/L
NEURO: Gross non-focal
SKIN: No rash
[2025-01-11 16:24] LABS: Glucose - Point of Care 146 mg/dl (70-99)
[2025-01-11] MEDS: LOVENOX 40 MG SC (17:17)
[2025-01-11 19:08] VITALS: BP 106/46
[2025-01-11 22:41] LABS: Glucose - Point of Care 189 mg/dl (70-99)
[2025-01-11] MEDS: MELATONIN 5 MG PO (23:01)
[2025-01-11] MEDS: STERILE WATER FOR INJECTION 10 ML IV (23:01)
[2025-01-11] MEDS: SENOKOT 8.6 MG PO (23:01)
[2025-01-11] MEDS: ROCEPHIN 1000 MG IV (23:02)
[2025-01-11 23:40] VITALS: BP 108/54
[2025-01-12 03:10] VITALS: BP 134/51
[2025-01-12 05:59] VITALS: BMI 26.5
[2025-01-12] MEDS: DUONEB 3 ML INH ×4 (07:16→19:30)
[2025-01-12 07:18] VITALS: BP 109/50
[2025-01-12 08:00] LABS: Hematocrit 38.3 % (39.0-52.0); Mean Corp Hgb Conc. 33.9 g/dL (33.0-37.0); Mean Corpuscular Hgb 31.7 pg (27.0-31.0); Mean Corpuscular Volume 93.4 fL (80.0-94.0); Mean Platelet Volume 11.3 fL (7.4-10.4); Platelet Count 203 10^3/uL (130-400); Red Cell Dist. Width 12.4 % (11.5-14.5); White Blood Cell Count 6.9 10^3/uL (4.8-10.8)
[2025-01-12 08:37] LABS: Glucose - Point of Care 177 mg/dl (70-99)
[2025-01-12] MEDS: NOVOLOG FLEXPEN-LOW RESISTANCE SC ×4 (08:46→18:16)
[2025-01-12] MEDS: NOVOLOG FLEXPEN SC ×4 (08:51→18:16)
[2025-01-12] MEDS: LANTUS SC ×2 (08:52→09:01)
[2025-01-12] MEDS: LOW STRENGTH ASPIRIN 81 MG PO (08:53)
[2025-01-12] MEDS: VIBRAMYCIN 100 MG PO ×2 (08:53→20:02)
[2025-01-12] MEDS: LIPITOR 20 MG PO (08:53)
[2025-01-12] MEDS: TAMIFLU 75 MG PO ×2 (08:53→20:02)
[2025-01-12] MEDS: MUCINEX 1200 MG PO ×2 (08:53→20:03)
[2025-01-12] MEDS: COZAAR 25 MG PO (08:53)
[2025-01-12 10:05] LABS: Blood Urea Nitrogen 21 mg/dl (9-20); Calcium 9.2 mg/dl (8.4-10.2); Carbon Dioxide 26 mmol/L (22-30); Chloride 98 mmol/L (98-107); Estimated Creatinine Clearance 62 ml/min; Glucose 141 mg/dl (70-99); Potassium 4.5 mmol/L (3.5-5.1); Sodium 136 mmol/L (135-145); eGFR > 60.00
--- NOTE | 2025-01-12 10:34 | PN.CDI ---
CDI
- -
CDI:
Physician Documentation Request
Admit Date: 01/10/25 01:50
Dear Doctor Emery,
Clinical Indicators:
Patient admitted with Influenza A pneumonia.
HR/RR trend on admission:
01/09/25
23:53 01/10/25
01:00 01/10/25
01:30
Pulse 91 99 92
Resp Rate 27 26 23
01/10/25
02:00 01/10/25
02:57 01/10/25
03:45
Pulse 96 96 98
Resp Rate 21 25 33
Please clarify which of the following most accurately describes the status of the patient's infection:
Sepsis, POA
- Systemic manifestations of infection, with 2 or more SIRS criteria which include:
- Fever >100.4 degrees F or hypothermia < 96.8 degrees F
- Leukocytosis - WBC > 12,000 or leukopenia - WBC < 4,000 or > 10% bands
- Tachycardia > 90 beats per minute
- Tachypnea - RR > 20 breaths per minute or PaCO2 , 32mmHg
Source: Merck Manual 2013
Influenza A Pneumonia Only, Without Systemic Illness
Other
Use of terms such as suspected, likely, concern for, or probable (associated with a specific diagnosis that is being evaluated, monitored, or treated as if it exists) are acceptable and can be coded in the inpatient setting, when documented at the
time of discharge.
Thank you,
Rachel Martino RN BSN
CDI Specialist
available via tiger text
Please use your independent medical judgment in providing your response.
[2025-01-12 10:43] LABS: NT-proBNP 56.3 pg/ml
[2025-01-12 11:57] VITALS: BP 117/51
[2025-01-12] MEDS: MIRALAX 17 GRAMS PO (12:25)
[2025-01-12] MEDS: OCEAN, SALINE MIST 2 SPRAYS NASAL (12:25)
[2025-01-12 14:43] LABS: Glucose - Point of Care 170 mg/dl (70-99)
[2025-01-12] MEDS: TESSALON PERLES 200 MG PO ×2 (14:57→20:02)
[2025-01-12] MEDS: PHENERGAN WITH CODEINE SYRUP 5 ML PO ×2 (14:57→20:02)
[2025-01-12] MEDS: TYLENOL 650 MG PO ×2 (14:59→20:02)
[2025-01-12 15:56] VITALS: BP 104/46
--- NOTE | 2025-01-12 16:00 | W.PN.HOSP.TC ---
Today's Communication/Plan
-
Continue antibiotics, Tamiflu, pulmonary toilet
Assessment / Plan
Assessment / Plan
Physical Exam
General: Not in acute distress
HEENT: Moist mucous membranes
Respiratory: Scattered coarse breath sounds bilaterally. Few wheezes.
Cardiac: S1/S2, Regular Rhythm and Regular Rate
GI: Soft, Non Tender, Non Distended and Normal Bowel Sounds
Musculoskeletal: No Cyanosis and No Edema
Neuro: AAO x 3
Assessment/Plan
Patient is a 64y M with PMH significant for ASCVD and DM-I who presents to ED complaining of cough and SOB x several days.
Influenza A
Pneumonia
Acute Hypoxemic Respiratory Insufficiency secondary to the above
- Still requiring oxygen
- Continue Tamiflu.
- Supportive care with O2, albuterol, mucolytics, etc.
- Cover with antibiotics for now given possible right medial base infiltrate / immunocompromise / etc.
- Follow for clinical improvement.
- Repeat CXR in the morning
ASCVD
Abnormal Troponin
- Some chest tightness associated with cough / dyspnea.
- EKG with non-specific ST-T changes in the lateral leads.
- Suspect that this is non-ischemic myocardial injury secondary to acute illness.
- Given CAD history will continue to follow troponin.
- Continue daily ASA, statin, etc.
- Echocardiogram with normal left ventricular size, wall thickness and systolic function; no regional wall motion abnormalities; LV ejection fraction 54%; normal right ventricular size and function; moderate to severe
mitral regurgitation; mild tricuspid regurgitation.
- Cardiology evaluation, outpatient ischemic evaluation.
DM-I
- Stable. Continue basal insulin.
- Follow glucose and cover with SSI as needed.
- A1C 7.2%
Benign Hypertension
- Stable. Continue losartan.
DVT Prophylaxis: Lovenox
Code Status: Full Code
Anticipated Discharge: > 48 hours
Subjective/Interval History
-
Date of Service: January 12, 2025
Patient was seen and examined. He reported still feeling terrible, still coughing, but breathing a bit better with the bronchodilators.
Objective Data
-
Labs:
Laboratory Results
01/12/25
07:21
WBC 6.9
Hgb 13.0
Hct 38.3 L
Plt Count 203
Sodium 136
Potassium 4.5
Chloride 98
Carbon Dioxide 26
BUN 21 H
Creatinine 1.0
Glucose 141 H
Calcium 9.2
Vital Signs:
Vital Signs
Temp Pulse Resp BP Pulse Ox
98.3 F 93 18 117/51 92
01/12/25 11:57 01/12/25 11:57 01/12/25 11:57 01/12/25 11:57 01/12/25 11:57
I&O
01/11/25 01/12/25 01/13/25
06:59 06:59 06:59
Intake Total 480 / 480 1380 / 1380
Balance 480 / 480 1380 / 1380
--- NOTE | 2025-01-12 16:20 | CM ---
Patient chart reviewed
+Influenza
PT eval today - no anticipated needs at d/c
PLAN: Home when medically stable, no needs anticipated.
[2025-01-12] MEDS: LOVENOX SC ×2 (18:15→18:20)
[2025-01-12 18:26] LABS: Glucose - Point of Care 129 mg/dl (70-99)
[2025-01-12] MEDS: SENOKOT 8.6 MG PO (20:02)
[2025-01-12 22:20] LABS: Glucose - Point of Care 112 mg/dl (70-99)
[2025-01-12 23:06] VITALS: BP 128/57
[2025-01-13] MEDS: ROCEPHIN 1000 MG IV (00:51)
[2025-01-13] MEDS: STERILE WATER FOR INJECTION 10 ML IV (00:51)
[2025-01-13] MEDS: DUONEB 3 ML INH ×4 (07:20→19:29)
[2025-01-13 07:32] LABS: Hematocrit 37.4 % (39.0-52.0); Hemoglobin 12.9 g/dL (13.0-18.0); Mean Corp Hgb Conc. 34.5 g/dL (33.0-37.0); Mean Corpuscular Hgb 32.3 pg (27.0-31.0); Mean Corpuscular Volume 93.7 fL (80.0-94.0); Mean Platelet Volume 11.1 fL (7.4-10.4); Platelet Count 220 10^3/uL (130-400); Red Blood Cell Count 3.99 10^6/uL (4.70-6.10); Red Cell Dist. Width 12.2 % (11.5-14.5); White Blood Cell Count 7.2 10^3/uL (4.8-10.8)
[2025-01-13 08:10] VITALS: BP 122/58
[2025-01-13 08:23] LABS: Glucose - Point of Care 175 mg/dl (70-99)
[2025-01-13 08:49] LABS: Blood Urea Nitrogen 16 mg/dl (9-20); Carbon Dioxide 27 mmol/L (22-30); Chloride 101 mmol/L (98-107); Estimated Creatinine Clearance 69 ml/min; Glucose 132 mg/dl (70-99); Potassium 4.5 mmol/L (3.5-5.1); Sodium 136 mmol/L (135-145); eGFR > 60.00
[2025-01-13] MEDS: LOW STRENGTH ASPIRIN 81 MG PO (09:06)
[2025-01-13] MEDS: VIBRAMYCIN 100 MG PO ×2 (09:06→21:23)
[2025-01-13] MEDS: TAMIFLU 75 MG PO ×2 (09:06→21:23)
[2025-01-13] MEDS: LIPITOR 20 MG PO (09:06)
[2025-01-13] MEDS: COZAAR 25 MG PO (09:06)
[2025-01-13] MEDS: MUCINEX 1200 MG PO ×2 (09:06→21:25)
[2025-01-13] MEDS: MIRALAX 17 GRAMS PO (09:07)
[2025-01-13] MEDS: LANTUS SC (09:07)
[2025-01-13] MEDS: NOVOLOG FLEXPEN-LOW RESISTANCE SC ×3 (09:08→17:09)
[2025-01-13] MEDS: NOVOLOG FLEXPEN SC ×3 (09:08→17:09)
[2025-01-13] MEDS: TESSALON PERLES 200 MG PO ×2 (09:10→17:06)
--- NOTE | 2025-01-13 10:02 | W.PN.HOSP.TC ---
Today's Communication/Plan
-
See plan
Assessment / Plan
Assessment / Plan
Physical Exam
General: Not in acute distress
HEENT: Moist mucous membranes
Respiratory: Scattered coarse breath sounds bilaterally. Few wheezes.
Cardiac: S1/S2, Regular Rhythm and Regular Rate
GI: Soft, Non Tender, Non Distended and Normal Bowel Sounds
Musculoskeletal: No Cyanosis and No Edema
Neuro: AAO x 3
Assessment/Plan
Patient is a 64 y/o male with past medical history significant for ASCVD and Type 1 DM who presented complaining of cough and SOB x several days.
Influenza A
Concern for Sepsis POA
Pneumonia
Acute Hypoxemic Respiratory Insufficiency secondary to the above
- Still requiring oxygen
- Continue Tamiflu.
- Supportive care with O2, albuterol, mucolytics, etc.
- Cepacol, Claritin
- Duonebs and Pulmicort
- Cover with antibiotics for now given possible right medial base infiltrate / immunocompromise / etc.
- Patient has not improved over the past few days: CT Chest ordered which showed no PE but did show bilateral pneumonia
- Given patient has not been improving, he requested pulmonary consult
- Check Legionella and strep
Constipation
-Bowel regimen
ASCVD
CAD
Coronary artery calcifications and/or stents on CT Chest
Abnormal Troponin
- Some chest tightness associated with cough / dyspnea.
- EKG with non-specific ST-T changes in the lateral leads.
- Suspect that this is non-ischemic myocardial injury secondary to acute illness.
- Continue daily ASA, statin, etc.
- Echocardiogram with normal left ventricular size, wall thickness and systolic function; no regional wall motion abnormalities; LV ejection fraction 54%; normal right ventricular size and function; moderate to severe
mitral regurgitation; mild tricuspid regurgitation.
- Cardiology evaluation, outpatient ischemic evaluation.
DM-I
- Stable. Continue basal insulin.
- Follow glucose and cover with SSI as needed.
- A1C 7.2%
Benign Hypertension
- Stable. Continue losartan.
DVT Prophylaxis: Lovenox
Code Status: Full Code
Anticipated Discharge: > 48 hours
Subjective/Interval History
-
Date of Service: January 13, 2025
Patient was seen and examined. He reported still feeling pretty terrible with cough and overall not feeling well still, still needing oxygen.
Objective Data
-
Labs:
Laboratory Results
01/13/25
06:47
WBC 7.2
Hgb 12.9 L
Hct 37.4 L
Plt Count 220
Sodium 136
Potassium 4.5
Chloride 101
Carbon Dioxide 27
BUN 16
Creatinine 0.9
Glucose 132 H
Calcium 9.0
Vital Signs:
Vital Signs
Temp Pulse Resp BP Pulse Ox
98.2 F 96 18 122/58 91
01/13/25 08:10 01/13/25 09:06 01/13/25 08:10 01/13/25 09:06 01/13/25 08:10
I&O
01/12/25 01/13/25 01/14/25
06:59 06:59 06:59
Intake Total 1380 / 1380 990 / 990
Balance 1380 / 1380 990 / 990
[2025-01-13 10:27] VITALS: BMI 26.5
[2025-01-13] MEDS: DULCOLAX 10 MG PO (11:53)
[2025-01-13 12:00] LABS: Glucose - Point of Care 199 mg/dl (70-99)
--- NOTE | 2025-01-13 12:34 | CON.PUL ---
Consultation
Consultation Request
Date/Time Consultation Requested: 01/13/2025
Date/Time Consultation Performed: 01/13/2025
Requesting Provider: Dr. Land
Performing Provider: Dr. Edward Maradiaga
Reason for Consultation: Pneumonia/influenza A
Medical History
-
History of Present Illness:
64-year-old male with past medical history significant for coronary artery disease, type 1 diabetes who came to the hospital complaining of shortness of breath and cough for several days. Symptoms started around Friday. Reported generalized
malaise, myalgias and fatigue. Persistent coughing. Went to urgent care chest x-ray showed no significant abnormalities but she tested positive for flu. Tamiflu started. Patient felt worse and came to the emergency room at [facility] on
01/10/2025 for evaluation.
Social History
Tobacco: Non-smoker
Alcohol: Occasional
Drug: None
Family History
Family History: Reviewed & Not Pertinent
Allergies / Home Medications
Allergies
Allergy/AdvReac Type Severity Reaction Status Date / Time
No Known Allergies Allergy Verified 01/10/25 01:21
Home Medications
�Medication �Instructions �Recorded �Confirmed �Last Taken �Type
atorvastatin 20 mg tablet 20 mg PO DAILY High Cholesterol 01/13/11 01/10/25 08/20/14 08:45 History
losartan 25 mg tablet 25 mg PO DAILY Blood Pressure 08/21/14 01/10/25 08/20/14 08:45 History
albuterol sulfate 90 mcg/actuation 2 puff inhalation Q6H PRN sob 01/10/25 01/10/25 Unknown History
aerosol inhaler
aspirin 81 mg tablet,delayed 81 mg PO DAILY Blood Clot 01/10/25 01/10/25 Unknown History
release Prevention/Tx
insulin aspart U-100 100 unit/mL 5 unit SC AC Diabetes 01/10/25 01/10/25 Unknown History
(3 mL) subcutaneous pen
insulin degludec 100 unit/mL (3 14 unit SC DAILY Diabetes 01/10/25 01/10/25 Unknown History
mL) subcutaneous pen (Tresiba
FlexTouch U-100 insulin)
oseltamivir 75 mg capsule 75 mg PO BID Infection 01/10/25 01/10/25 Unknown History
Review of Systems
Vitals / Labs / Diagnostic Testing
Vital Signs
Temp Pulse Resp BP Pulse Ox
98.2 F 90 18 122/58 91
01/13/25 08:10 01/13/25 11:27 01/13/25 11:27 01/13/25 09:06 01/13/25 10:13
Lab Data
01/13/25 06:47
01/13/25 06:47
Diagnostic Testing:
Physical Exam
-
HEENT: Normocephalic
Cardiovascular: S1/S2
Respiratory: Rales (Bibasilar), Rhonchi (Scattered) and Other (Forced expiratory wheeze, bilateral squeaks)
GI: Soft and Non Distended
Neurology: Awake, Alert, AO x 3 and No Motor Deficits
Skin: Warm
General: Respiratory Distress (After coughing)
Assessment
-
64-year-old male with past medical history noted, came to the hospital with about 3 to 4 days of symptoms including coughing, shortness of breath. Initially evaluated at the urgent care. Diagnosed with influenza A. Due to lack of improvement
after 3 days on Tamiflu came to the hospital for evaluation. Found to have pneumonia. Admitted on 01/10/2025-continues to be symptomatic. Found to be mildly hypoxemic. We were consulted on 01/13/2025 for evaluation.
Acute respiratory insufficiency requiring supplemental oxygen. Currently on 2 L supplemental oxygen.
Influenza A symptoms started about a week ago.
Likely bilateral bacterial pneumonia superinfection-based on CAT scan infiltrates.
Acute/subacute cough
Abnormal troponin
Conditions present prior admission:
Type 1 diabetes
Hypertension
History of coronary artery disease-prior LAD stent
History of prior back surgery with hardware in place-2009 after a fall
Pulmonary history: None
Distant history of severe pneumonia 2009 recurrent intubation after fall/trauma
Non-smoker
-
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
Assessment and plan:
-
Clinical picture consistent with influenza A and likely bacterial superinfection.
CT chest noted:
Examination is negative for pulmonary embolism.
Patchy parenchymal opacity bilaterally, greatest within the lower lobes, and this likely represents pneumonia. Minimal amount of left pleural fluid and trace amount of right pleural fluid.
Coronary artery calcifications and/or stents are present.
There is a lucency through the anterior and superior aspect of the right side of the T11 vertebral body, morphologic appearance suggesting acute to subacute fracture.
Streak artifact from fusion hardware from T6 through T10.
-
There is symptomatic with coughing/nasal congestion/not feeling well.
Lung exam with bilateral crackles/rhonchi and squeaks.
-
Afebrile/no leukocytosis
Continues to be symptomatic with coughing and shortness of breath
Normal renal function, electrolytes are balanced. Normal LFTs.
Currently on low rate supplemental oxygen 2 L nasal cannula.
-
Agree with ceftriaxone/doxycycline
Continue Tamiflu
Will obtain a sputum culture if able
Will obtain Legionella and streptococcal pneumonia antigen urine
Afebrile, recommend blood cultures if fever develops.
-
Symptomatic management: Cough suppressant
Mucolytics
Antitussive-currently on Tessalon Perles
Promethazine/codeine
Will add Cepacol lozenges
Antihistamine-loratadine
Continue saline nasal spray
Will add Pulmicort nebulizer for symptomatic relief of coughing.
Continue DuoNebs to aid with secretion clearance
Avoid systemic corticosteroids with type 1 diabetes-may be necessary if symptoms progress.
Add Acapella device
-
Oxygen supplementation: Currently at 2 L. Wean down as able.
-
As needed chest x-ray. Will need to repeat 1 in the next several days to follow-up and small pleural effusions.
Patient will need radiographic follow-up in the outpatient setting.
-
Mild troponin increase:
Cardiology following-recommended outpatient evaluation.
Echocardiogram 01/10/2025 noted: Normal LVEF. Normal biventricular size and function. Moderate to severe MR. Mild TR.
Type 1 diabetes-continue insulin.
-
DVT prophylaxis-Lovenox
-
Will follow
[2025-01-13] MEDS: CLARITIN 10 MG PO (13:28)
[2025-01-13] MEDS: ANESTHETIC LOZENGE 1 LOZENGE PO (13:28)
--- NOTE | 2025-01-13 15:40 | CM ---
Patient seen at bedside
CT scan negative pulmonary embolism
continues on
PLAN: Home, no needs anticipated
[2025-01-13 15:50] VITALS: BP 106/58
[2025-01-13] MEDS: LOVENOX SC (17:09)
[2025-01-13] MEDS: PULMICORT 0.5 MG INH (19:30)
--- NOTE | 2025-01-13 20:08 | PTCARENOTE ---
Patient using own dexcom and insulin pens and self administering insulin throughout shift, given permission by MD. Insulin administration sheet given to patient by this RN, patient encouraged to fill out. Patient's blood sugar for breakfast 175,
patient self administered scheduled lantus dose and 8 units novolog flexpen. Lunchtime blood sugar 199, patient skipped meal but self administered 3 units novolog flexpen. Patient refusing accucheck blood sugar for dinner, states dexcom reads 136,
patient self administered 5 units novolog flexpen for dinner. MD made aware of patient refusing accucheck machine and of patient's dexcom results, no new orders at this time.
[2025-01-13] MEDS: SENOKOT 8.6 MG PO (21:26)
[2025-01-13] MEDS: MELATONIN 5 MG PO (22:46)
[2025-01-13 22:48] LABS: Glucose - Point of Care 135 mg/dl (70-99)
[2025-01-13 23:24] VITALS: BP 122/59
[2025-01-14] MEDS: ROCEPHIN 1000 MG IV (00:08)
[2025-01-14] MEDS: STERILE WATER FOR INJECTION 10 ML IV (00:08)
[2025-01-14] MEDS: TYLENOL 650 MG PO ×4 (00:25→22:09)
[2025-01-14 03:35] VITALS: BP 120/60
[2025-01-14 06:00] VITALS: BMI 26.3
[2025-01-14] MEDS: PULMICORT 0.5 MG INH ×2 (07:14→19:34)
[2025-01-14] MEDS: DUONEB 3 ML INH ×4 (07:14→19:34)
[2025-01-14 07:15] VITALS: BP 111/55
[2025-01-14 07:48] LABS: Hematocrit 36.5 % (39.0-52.0); Hemoglobin 12.6 g/dL (13.0-18.0); Mean Corp Hgb Conc. 34.5 g/dL (33.0-37.0); Mean Corpuscular Volume 92.6 fL (80.0-94.0); Mean Platelet Volume 11.2 fL (7.4-10.4); Platelet Count 236 10^3/uL (130-400); Red Blood Cell Count 3.94 10^6/uL (4.70-6.10); Red Cell Dist. Width 12.3 % (11.5-14.5)
[2025-01-14] MEDS: LOW STRENGTH ASPIRIN 81 MG PO (07:54)
[2025-01-14] MEDS: CLARITIN 10 MG PO (07:54)
[2025-01-14] MEDS: VIBRAMYCIN 100 MG PO ×2 (07:54→21:24)
[2025-01-14] MEDS: MUCINEX 1200 MG PO ×2 (07:54→21:24)
[2025-01-14] MEDS: TAMIFLU 75 MG PO ×2 (07:55→21:25)
[2025-01-14] MEDS: MIRALAX 17 GRAMS PO (07:55)
[2025-01-14] MEDS: TESSALON PERLES 200 MG PO ×2 (07:55→14:24)
[2025-01-14] MEDS: LIPITOR 20 MG PO (07:55)
[2025-01-14] MEDS: COZAAR 25 MG PO (07:56)
[2025-01-14 08:41] LABS: Blood Urea Nitrogen 14 mg/dl (9-20); Calcium 9.3 mg/dl (8.4-10.2); Carbon Dioxide 32 mmol/L (22-30); Chloride 100 mmol/L (98-107); Estimated Creatinine Clearance 69 ml/min; Glucose 130 mg/dl (70-99); Sodium 137 mmol/L (135-145); eGFR > 60.00
[2025-01-14 08:55] LABS: Potassium 4.7 mmol/L (3.5-5.1)
[2025-01-14] MEDS: NOVOLOG FLEXPEN SC ×3 (09:05→17:11)
[2025-01-14] MEDS: LANTUS SC (09:05)
[2025-01-14] MEDS: NOVOLOG FLEXPEN-LOW RESISTANCE SC ×3 (09:05→17:11)
--- NOTE | 2025-01-14 09:24 | W.PN.HOSP.TC ---
Today's Communication/Plan
-
Bowel regimen, enema, mag citrate, pulmonary toilet, antibiotics, Tamiflu
Assessment / Plan
Assessment / Plan
Physical Exam
General: Not in acute distress
HEENT: Moist mucous membranes
Respiratory: Scattered coarse breath sounds bilaterally. Few wheezes.
Cardiac: S1/S2, Regular Rhythm and Regular Rate
GI: Soft, Non Tender, Non Distended and Normal Bowel Sounds
Musculoskeletal: No Cyanosis and No Edema
Neuro: AAO x 3
Assessment/Plan
Patient is a 64 y/o male with past medical history significant for ASCVD and Type 1 DM who presented complaining of cough and SOB x several days.
Influenza A
Concern for Sepsis POA
Pneumonia
Acute Hypoxemic Respiratory Insufficiency secondary to the above
- Still requiring oxygen at times, but at times on room air
- Continue Tamiflu.
- Supportive care with O2, albuterol, mucolytics, etc.
- Cepacol, Claritin
- Duonebs and Pulmicort
- Cover with antibiotics for now given possible right medial base infiltrate / immunocompromise / etc.
- Patient was not improving, therefore: CT Chest ordered which showed no PE but did show bilateral pneumonia
- Given patient had not been improving, he requested pulmonary consult
- Check Legionella and strep
Constipation
-Bowel regimen
-Magnesium citrate
-Milk and Molasses 500 cc
-Patient clearly agreed to current bowel regimen including but not limited to the enema and also magnesium citrate
ASCVD
CAD
Coronary artery calcifications and/or stents on CT Chest
Abnormal Troponin
- Some chest tightness associated with cough / dyspnea.
- EKG with non-specific ST-T changes in the lateral leads.
- Suspect that this is non-ischemic myocardial injury secondary to acute illness.
- Continue daily ASA, statin, etc.
- Echocardiogram with normal left ventricular size, wall thickness and systolic function; no regional wall motion abnormalities; LV ejection fraction 54%; normal right ventricular size and function; moderate to severe
mitral regurgitation; mild tricuspid regurgitation.
- Cardiology evaluation, outpatient ischemic evaluation.
DM-I
- Stable. Continue basal insulin.
- Follow glucose and cover with SSI as needed.
- A1C 7.2%
Benign Hypertension
- Stable. Continue losartan.
DVT Prophylaxis: Lovenox
Code Status: Full Code
Anticipated Discharge: 24 - 48 hours
Subjective/Interval History
-
Date of Service: January 14, 2025
Patient was seen and examined. He was sitting in his chair in the room, he reported doing squats earlier in the morning, still has not had a bowel movement.
Objective Data
-
Labs:
Laboratory Results
01/14/25 01/14/25
07:04 07:05
WBC 7.0
Hgb 12.6 L
Hct 36.5 L
Plt Count 236
Sodium 137
Potassium 4.7
Chloride 100
Carbon Dioxide 32 H
BUN 14
Creatinine 0.9
Glucose 130 H
Calcium 9.3
Vital Signs:
Vital Signs
Temp Pulse Resp BP Pulse Ox
97.8 F 80 15 111/55 94
01/14/25 07:15 01/14/25 07:56 01/14/25 07:17 01/14/25 07:56 01/14/25 07:17
I&O
01/13/25 01/14/25 01/15/25
06:59 06:59 06:59
Intake Total 990 / 990 1160 / 1160
Balance 990 / 990 1160 / 1160
[2025-01-14] MEDS: CITROMA 300 ML PO (10:02)
--- NOTE | 2025-01-14 12:11 | W.PN.PUL3 ---
Today's Communication / Plan
-
Continue antibiotic
Tamiflu
Continue secretion clearance intervention
Antitussives
Mucolytic
Follow cultures
Will follow
Assessment
-
64-year-old male with past medical history noted, came to the hospital with about 3 to 4 days of symptoms including coughing, shortness of breath. Initially evaluated at the urgent care. Diagnosed with influenza A. Due to lack of improvement
after 3 days on Tamiflu came to the hospital for evaluation. Found to have pneumonia. Admitted on 01/10/2025-continues to be symptomatic. Found to be mildly hypoxemic. We were consulted on 01/13/2025 for evaluation.
Acute respiratory insufficiency requiring supplemental oxygen. Currently on 2 L supplemental oxygen.
Influenza A symptoms started about a week ago.
Likely bilateral bacterial pneumonia superinfection-based on CAT scan infiltrates.
Acute/subacute cough
Abnormal troponin
Conditions present prior admission:
Type 1 diabetes
Hypertension
History of coronary artery disease-prior LAD stent
History of prior back surgery with hardware in place-2009 after a fall
Pulmonary history: None
Distant history of severe pneumonia 2009 recurrent intubation after fall/trauma
Non-smoker
-
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
Assessment and plan:
-
Clinical picture consistent with influenza A and likely bacterial superinfection.
CT chest noted:
Examination is negative for pulmonary embolism.
Patchy parenchymal opacity bilaterally, greatest within the lower lobes, and this likely represents pneumonia. Minimal amount of left pleural fluid and trace amount of right pleural fluid.
Coronary artery calcifications and/or stents are present.
There is a lucency through the anterior and superior aspect of the right side of the T11 vertebral body, morphologic appearance suggesting acute to subacute fracture.
Streak artifact from fusion hardware from T6 through T10.
-
There is symptomatic with coughing/nasal congestion/not feeling well.
Lung exam with bilateral crackles/rhonchi and squeaks.
-
Remains afebrile/no leukocytosis
Normal renal function, electrolytes are balanced. Normal LFTs.
-
Initially on 2 L-now on room air. Adequate oxygenation. Improved.
-
Continue ceftriaxone/doxycycline
Continue Tamiflu-5 to 10 days
Will obtain a sputum culture if able-pending
Negative Legionella and streptococcal pneumonia antigen urine
Afebrile, recommend blood cultures if fever develops.
-
Symptomatic management:
Cough suppressant
Mucolytics
Antitussive-currently on Tessalon Perles
Promethazine/codeine
Continue Cepacol lozenges
Antihistamine-loratadine
Continue saline nasal spray
Continue Pulmicort nebulizer for symptomatic relief of coughing. While in the hospital
Continue DuoNebs to aid with secretion clearance
Avoid systemic corticosteroids with type 1 diabetes-may be necessary if symptoms progress.
Continue Acapella device
-
As needed chest x-ray. Will need to repeat in the next several days to follow-up and small pleural effusions.
Patient will need radiographic follow-up in the outpatient setting.
-
Mild troponin increase:
Cardiology following-recommended outpatient evaluation.
Echocardiogram 01/10/2025 noted: Normal LVEF. Normal biventricular size and function. Moderate to severe MR. Mild TR.
Type 1 diabetes-continue insulin.
-
DVT prophylaxis-Lovenox
-
Will follow
Subjective Data
-
Date of Service:
Date of Service: January 14, 2025
Chief Complaint: Pulmonary Follow Up (Influenza and/bacterial pneumonia)
Subjective:
Continues to report coughing
Feeling fatigued
Review of Systems
Cardiopulmonary: Dyspnea and Cough
Objective Data
Data Reviewed
Vital Signs / I&O / Oxygen:
Vital Signs
Temp Pulse Resp BP Pulse Ox
97.8 F 82 14 111/55 95
02/28/25 07:15 01/14/25 11:12 01/14/25 11:12 01/14/25 07:56 01/14/25 11:12
Intake and Output
01/13/25 01/14/25 01/15/25
06:59 06:59 06:59
Intake Total 990 / 990 1160 / 1160
Balance 990 / 990 1160 / 1160
SaO2 95
Nasal Cannula flow liters per 2
minute
Physical Exam
General: Comfortable
HEENT: Normocephalic
Cardiovascular: S1-S2
Respiratory: Wheeze (n), Crackles (bibasilar) and Rhonchi
GI: Soft and Non Distended
Neurology: Awake and No Motor Deficits
Skin: Warm
Labs/Micro/Reports
Lab Data
01/14/25 07:05
01/14/25 07:04
Microbiology
01/13/25 17:50 Urine Legionella Urinary Antigen - Final
Negative for Legionella pneumophila Serogroup 1 antigen.
A negative result does not rule out the possiblity of
Legionella infection due to other serogroups or species of
Legionella. Clinical correlation is recommended.
01/13/25 17:50 Urine Streptococcus pneumoniae Antigen (M - Final
Negative for Streptococcus pneumoniae antigen.
A negative result does not exclude infection with
Streptococcus pneumoniae. Clinical correlation is
recommended.
--- NOTE | 2025-01-14 12:32 | CM ---
Patient seen at bedside
IMM explained & signed
On Room air
PLAN: home, no needs
son to transport if needed, drove self here
[2025-01-14] MEDS: LOVENOX SC (17:26)
[2025-01-14] MEDS: SENOKOT 8.6 MG PO (21:25)
[2025-01-14 21:46] LABS: Glucose - Point of Care 237 mg/dl (70-99)
[2025-01-14 23:19] VITALS: BP 139/76
--- NOTE | 2025-01-15 00:17 | W.PN.UPDATE ---
Update Note
Progress Note Update
Asked to evaluate patient for continued complaints of abdominal pain and constipation. Pt states he has still not moved his bowels of stool and only clear liquid bowel movements after numerous bowel regimen medications/enemas. Patient states he is
having severe intermittent pain.
Patient abdomen soft, +BSx4, not tender to palpation. Patient does not want to take any further medications until studies are done. Ordered CT abdomen to further evaluate.
[2025-01-15] MEDS: ROCEPHIN 1000 MG IV (01:12)
[2025-01-15] MEDS: STERILE WATER FOR INJECTION 10 ML IV (01:13)
[2025-01-15 03:30] VITALS: BP 129/61
[2025-01-15 06:00] VITALS: BMI 25.9
--- NOTE | 2025-01-15 07:01 | W.PN.HOSP.TC ---
Today's Communication/Plan
-
Severe Abdominal Pain and liquid water bowel movements (per patient) after bowel regimen - including enema and Mag Citrate -- CT findings noted and CRS consulted
PT/OT
Home O2 assessment
Antibiotics and pulmonary toilet
Appreciate pulmonary -- anticipate discharge tomorrow if patient is doing well
Assessment / Plan
Assessment / Plan
Physical Exam
General: Not in acute distress
HEENT: Moist mucous membranes
Respiratory: Scattered coarse breath sounds bilaterally. Few wheezes.
Cardiac: S1/S2, Regular Rhythm and Regular Rate
GI: Soft, Non Tender, Non Distended and Normal Bowel Sounds
Musculoskeletal: No Cyanosis and No Edema
Neuro: AAO x 3
Assessment/Plan
Patient is a 64 y/o male with past medical history significant for ASCVD and Type 1 DM who presented complaining of cough and SOB x several days.
Influenza A
Concern for Sepsis POA
Pneumonia
Acute Hypoxemic Respiratory Insufficiency secondary to the above
- Still requiring oxygen at times, but at times on room air
- Continue Tamiflu.
- Supportive care with O2, albuterol, mucolytics, etc.
- Cepacol, Claritin
- Duonebs and Pulmicort
- Cover with antibiotics for now given possible right medial base infiltrate / immunocompromise / etc.
- Patient was not improving, therefore: CT Chest ordered which showed no PE but did show bilateral pneumonia
- Given patient had not been improving, he requested pulmonary consult
- Legionella and strep are both negative
Constipation
-Bowel regimen
-Magnesium citrate and Milk and Molasses 500 cc
-From 01/14 to 01/15 patient had intense abdominal pain after the above bowel regimen, and due to concerns that patient may not be moving his bowels well and possible other bowel pathology, ordered CT Abdomen Pelvis and consulted colorectal surgery
-CT does not show much stool -- but there is mild thickening of the rectum and rectosigmoid area which is nonspecific, and there is no evidence of diverticulitis.
-Add bulking agent to diet -- start Psyllium husk slowly
ASCVD
CAD
Coronary artery calcifications and/or stents on CT Chest
Abnormal Troponin
- Some chest tightness associated with cough / dyspnea.
- EKG with non-specific ST-T changes in the lateral leads.
- Suspect that this is non-ischemic myocardial injury secondary to acute illness.
- Continue daily ASA, statin, etc.
- Echocardiogram with normal left ventricular size, wall thickness and systolic function; no regional wall motion abnormalities; LV ejection fraction 54%; normal right ventricular size and function; moderate to severe
mitral regurgitation; mild tricuspid regurgitation.
- Cardiology evaluation, outpatient ischemic evaluation.
DM-I
- Stable. Continue basal insulin.
- Follow glucose and cover with SSI as needed.
- A1C 7.2%
Benign Hypertension
- Stable. Continue losartan.
DVT Prophylaxis: Lovenox
Code Status: Full Code
Anticipated Discharge: Within 24 hours
Subjective/Interval History
-
Date of Service: January 15, 2025
Patient was seen and examined. Patient reported that since yesterday afternoon he had some intense abdominal pain with just liquid water stool after getting the enema and Magnesium Citrate. Overnight, night SUPERVISOR DYER ordered CT abdomen pelvis to further
evaluate.
Objective Data
-
Labs:
Laboratory Results
01/15/25
06:00
WBC Pending
Hgb Pending
Hct Pending
Plt Count Pending
Sodium Pending
Potassium Pending
Chloride Pending
Carbon Dioxide Pending
BUN Pending
Creatinine Pending
Glucose Pending
Calcium Pending
Vital Signs:
Vital Signs
Temp Pulse Resp BP Pulse Ox
98.6 F 107 19 139/76 93
01/14/25 23:19 01/14/25 23:19 01/14/25 23:19 01/14/25 23:19 01/14/25 23:39
I&O
01/14/25 01/15/25 01/16/25
06:59 06:59 06:59
Intake Total 1160 / 1160 900 / 900
Balance 1160 / 1160 900 / 900
[2025-01-15 07:20] VITALS: BP 128/57
[2025-01-15] MEDS: DUONEB 3 ML INH ×4 (07:23→17:31)
[2025-01-15] MEDS: PULMICORT 0.5 MG INH ×2 (07:23→17:31)
[2025-01-15] MEDS: OMNIPAQUE 50 ML PO (07:56)
[2025-01-15] MEDS: MUCINEX 1200 MG PO ×2 (08:00→20:11)
[2025-01-15] MEDS: CLARITIN 10 MG PO (08:01)
[2025-01-15] MEDS: LOW STRENGTH ASPIRIN 81 MG PO (08:01)
[2025-01-15] MEDS: COZAAR 25 MG PO (08:01)
[2025-01-15] MEDS: LIPITOR 20 MG PO (08:01)
[2025-01-15] MEDS: VIBRAMYCIN 100 MG PO ×2 (08:01→20:11)
[2025-01-15] MEDS: NOVOLOG FLEXPEN-LOW RESISTANCE SC ×3 (08:02→17:24)
[2025-01-15] MEDS: NOVOLOG FLEXPEN 4 UNITS SC (08:03)
[2025-01-15] MEDS: LANTUS 0.14 UNITS SC (11:50)
--- NOTE | 2025-01-15 12:12 | CON.CRS ---
Consultation
-
Date/Time Consultation Requested: 01/15/25 @ 7:00
Date/Time Consultation Performed: 01/16/24 @ 11:00
Requesting Provider: Sam Land MD
Performing Provider: Tavares Paige MD
Reason for Consultation: Abdominal pain/constipation
Medical History
-
Chief Complaint: Constipation
History of Present Illness:
64-year-old male with IDDM and ASCHD, admitted 01/10 with cough and shortness of breath, positive for Influenza A. His bowels are fairly regular prior to admission but he didn't move his bowels for several days. He has had constipation in the past
while taking narcotics after injuring his back. On this admission he was given stool softeners, stimulants, laxatives with little relief. He felt the urge to move his bowels and there is abdominal bloating, but no nausea or vomiting. He was given an
enema yesterday with the evacuation of a large amount of liquid, followed by stool. Last night there was cramping in the left lower quadrant and it has resolved. This morning he had a large, loose bowel movement without blood. At present he feels
better. He has remained afebrile with a normal WBC. No prior history of diverticulitis. His last colonoscopy. He states he has had colonoscopies in the past at [facility].
Past Medical History
Past Medical History: CAD, GERD, HTN, Hypercholesterolemia and IDDM
Past Surgical History: Cardiac (PTCA with stent x2), Orthopedic (thoracic spine fusion) and Other (gastrostomy tube after back injury)
Social History
Tobacco: Non-Smoker
Alcohol: Occasional
Family History
Family History: Reviewed & Not Pertinent
Allergies / Home Medications
Allergy/AdvReac Type Severity Reaction Status Date / Time
No Known Allergies Allergy Verified 01/10/25 01:21
�Medication �Instructions �Recorded �Confirmed �Type
atorvastatin 20 mg tablet 20 mg PO DAILY High Cholesterol 01/13/11 01/10/25 History
losartan 25 mg tablet 25 mg PO DAILY Blood Pressure 08/21/14 01/10/25 History
albuterol sulfate 90 mcg/actuation 2 puff inhalation Q6H PRN sob 01/10/25 01/10/25 History
aerosol inhaler
aspirin 81 mg tablet,delayed 81 mg PO DAILY Blood Clot 01/10/25 01/10/25 History
release Prevention/Tx
insulin aspart U-100 100 unit/mL 5 unit SC AC Diabetes 01/10/25 01/10/25 History
(3 mL) subcutaneous pen
insulin degludec 100 unit/mL (3 14 unit SC DAILY Diabetes 01/10/25 01/10/25 History
mL) subcutaneous pen (Tresiba
FlexTouch U-100 insulin)
oseltamivir 75 mg capsule 75 mg PO BID Infection 01/10/25 01/10/25 History
Review of Systems
-
History Source: Patient
All other systems: Negative unless noted
A 10 point review of systems was completed, and was negative except as per HPI.
Physical Exam
Vital Signs
Temp 97.7 F 01/15/25 07:20
Pulse 78 01/15/25 07:26
Resp Rate 15 01/15/25 07:26
Blood pressure 128/57 01/15/25 07:20
SaO2 93 01/15/25 07:26
01/14/25 01/15/25 01/16/25
06:59 06:59 06:59
Actual Weight 69.49 kg 68.311 kg
Body Mass Index (BMI) 25.9
Lab Results / Allergies
WBC 7.0 10^3/uL (4.8-10.8) 01/14/25 07:05
Hgb 12.6 g/dL (13.0-18.0) L 01/14/25 07:05
Hct 36.5 % (39.0-52.0) L 01/14/25 07:05
Plt Count 236 10^3/uL (130-400) 01/14/25 07:05
Abs Immat Gran (auto) 0.0 10^3/uL (0-0.05) 01/09/25 23:34
Neutrophils % 67.9 % (42.2-75.2) 01/09/25 23:34
Allergy/AdvReac Type Severity Reaction Status Date / Time
No Known Allergies Allergy Verified 01/10/25 01:21
Physical Exam
General: Well Developed, Well Nourished, No Apparent Distress and Comfortable
HEENT: Anicteric
GI: Soft, Non Tender and Non Distended
Rectal: Other (normal; no stool)
Musculoskeletal: No Edema
Neuro: Awake and Alert
Data Reviewed
-
CT Scan: Image Personally Visualized and interpreted and Discussed with Patient
Total Time Spent with Patient (in minutes): 57
Assessment / Plan
-
Abdominal pain and a history of constipation.
I personally reviewed the CT scan and there does not appear to be much stool. There are some mild thickening of the rectum and rectosigmoid area which is nonspecific, there is no evidence of diverticulitis. I reviewed the current findings with the
patient and recommended adding a bulking agent to his diet. Psyllium husk is advised and will start slowly. He can resume his diet and will continue on a stool softener for now. I encouraged him to ambulate. All questions answered. Will follow
as needed.
[2025-01-15 12:44] LABS: Glucose - Point of Care 131 mg/dl (70-99)
[2025-01-15] MEDS: NOVOLOG FLEXPEN 5 UNITS SC ×2 (12:45→17:24)
[2025-01-15] MEDS: METAMUCIL, KONSYL 1 PACKET PO (13:35)
[2025-01-15 15:25] VITALS: BP 128/57
[2025-01-15 16:42] LABS: Glucose - Point of Care 112 mg/dl (70-99)
--- NOTE | 2025-01-15 16:50 | W.PN.PUL3 ---
Today's Communication / Plan
-
Continue antibiotics
s/p course of Tamiflu (last day was 01/14)
Continue secretion clearance intervention
Supportive care: Antitussives, Mucolytics and loratidine
Continue with budesonide + DuoNebs, and he should be discharged home with a LABA/ICS (i.e. Symbicort versus Breo, versus an equivalent inhaler)
Case management consulted to get him a nebulizer kit for home use
Outpatient pulmonary follow-up will be arranged
Will follow
Assessment
-
64-year-old male with past medical history noted, came to the hospital with about 3 to 4 days of symptoms including coughing, shortness of breath. Initially evaluated at the urgent care. Diagnosed with influenza A. Due to lack of improvement
after 3 days on Tamiflu came to the hospital for evaluation. Found to have pneumonia. Admitted on 01/10/2025-continues to be symptomatic. Found to be mildly hypoxemic. We were consulted on 01/13/2025 for evaluation.
Acute respiratory insufficiency requiring supplemental oxygen. Now on room air, previously required 2 L supplemental oxygen.
Influenza A symptoms started about a week ago.
Likely bilateral bacterial pneumonia (R>L) superinfection-based on CTA Chest (from 01/13/2025) infiltrates
Acute/subacute cough
Abnormal troponin
Conditions present prior admission:
Type 1 diabetes
Hypertension
History of coronary artery disease-prior LAD stent
History of prior back surgery with hardware in place-2009 after a fall
Pulmonary history: None
Distant history of severe pneumonia 2009 recurrent intubation after fall/trauma
Non-smoker
-
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
Assessment and plan:
-
Clinical picture consistent with influenza A and suspected bacterial superinfection.
CTA chest from 01/13/2025 personally reviewed:
Examination is negative for pulmonary embolism.
Patchy parenchymal opacity bilaterally, greatest within the lower lobes and RUL --> this likely represents pneumonia. Minimal amount of left pleural fluid and trace amount of right pleural fluid.
Coronary artery calcifications and/or stents are present.
There is a lucency through the anterior and superior aspect of the right side of the T11 vertebral body, morphologic appearance suggesting acute to subacute fracture.
Streak artifact from fusion hardware from T6 through T10.
-
He remains symptomatic with coughing/nasal congestion/general malaise
Lung exam with bilateral crackles/rhonchi and squeaks.
-
Remains afebrile, and he had normal WBC since admission, however the last CBC done on 01/14/2025
On 01/14, he had normal renal function, electrolytes are balanced. Normal LFTs.
-
Initially on 2 L-now on room air. Adequate oxygenation. Improved.
-
Continue ceftriaxone/doxycycline
Continue Tamiflu-5 to 10 days
Will obtain a sputum culture if able-pending
Negative Legionella and streptococcal pneumonia antigens in urine
Afebrile, recommend blood cultures if fever develops.
-
Symptomatic management:
Mucolytics
prn Antitussive-currently on Tessalon Perles
prn Promethazine/codeine
Continue benzocaine/menthol lozenges
Antihistamine-loratadine
Continue saline nasal spray
Continue Pulmicort nebulizer for symptomatic relief of coughing. While in the hospital --> should be discharged home on a LABA/ICS (i.e. Symbicort versus Breo versus an equivalent inhaler)
Continue DuoNebs to aid with secretion clearance --> I will consult case management to get him a nebulizer for home use (to be used prn with Duonebs)
Avoid systemic corticosteroids with type 1 diabetes-may be necessary if symptoms progress.
Continue Acapella device
-
As needed chest x-ray. Will need to repeat in the next several days to follow-up and small pleural effusions.
Patient will need radiographic follow-up in the outpatient setting.
-
Mild troponin increase:
Cardiology following-recommended outpatient evaluation.
Echocardiogram 01/10/2025 noted: Normal LVEF. Normal biventricular size and function. Moderate to severe MR. Mild TR.
Type 1 diabetes-continue insulin.
-
He does have intermittent abdominal pain and CT abdomen/pelvis on 01/15/2025 showed mild proctocolitis with cholelithiasis and mild gallbladder wall thickening with bilateral nephrolithiasis and bibasilar pneumonia ---> defer management of possible
cholecystitis to hospitalist team
-
DVT prophylaxis-Lovenox
-
Will follow
Total time spent today was 38 minutes for this encounter. Time includes reviewing laboratory test/imaging results, reviewing pertinent medical records, obtaining and reviewing medical history, performing an appropriate exam, ordering medications,
tests and procedures. Time also includes documentation of this encounter, coordinating patient care and communicating with other healthcare professionals. Total time does not include separately billed tests performed on this date of service.
Subjective Data
-
Date of Service:
Date of Service: January 15, 2025
Chief Complaint: Pulmonary Follow Up (Influenza and/bacterial pneumonia)
Subjective:
Patient seen earlier today (late note entry). Patient feels fatigued. Currently sitting in the chair in no acute distress. He is on room air breathing comfortably. He has nasal congestion. He is worried that his mother, who is in her 90s, he is
going to get sick from him once he goes home, plus she also has a flu with bronchitis. He denies chest pain, GAUTHIER, nausea, fevers or chills.
Review of Systems
General: Other (Negative unless mentioned above)
Objective Data
Data Reviewed
Vital Signs / I&O / Oxygen:
Vital Signs
Temp Pulse Resp BP Pulse Ox
97.7 F 78 15 128/57 93
01/15/25 07:20 01/15/25 07:26 01/15/25 07:26 01/15/25 07:20 01/15/25 07:26
Intake and Output
01/14/25 01/15/25 01/16/25
06:59 06:59 06:59
Intake Total 1160 / 1160 900 / 900
Balance 1160 / 1160 900 / 900
SaO2 93
Nasal Cannula flow liters per 2
minute
Physical Exam
General: Respiratory Distress (n), Comfortable, Chills (n) and Sweats (n)
HEENT: Normocephalic and Anicteric
Cardiovascular: S1-S2 and Peripheral Edema (n)
Respiratory: Wheeze (n), Crackles (Bilaterally), Rhonchi (Bilaterally) and Non-Labored Respirations
GI: Soft, Non Distended, Non Tender and Normal Bowel Sounds
Neurology: AO x 3 and Tremors (n)
Skin: Warm, Dry and Cyanosis (n)
Labs/Micro/Reports
Microbiology
01/13/25 17:50 Urine Legionella Urinary Antigen - Final
Negative for Legionella pneumophila Serogroup 1 antigen.
A negative result does not rule out the possiblity of
Legionella infection due to other serogroups or species of
Legionella. Clinical correlation is recommended.
01/13/25 17:50 Urine Streptococcus pneumoniae Antigen (M - Final
Negative for Streptococcus pneumoniae antigen.
A negative result does not exclude infection with
Streptococcus pneumoniae. Clinical correlation is
recommended.
[2025-01-15] MEDS: LOVENOX SC (17:20)
[2025-01-15] MEDS: COLACE 100 MG PO (20:11)
[2025-01-15 22:06] LABS: Glucose - Point of Care 83 mg/dl (70-99)
[2025-01-15 23:52] VITALS: BP 114/70
[2025-01-16] MEDS: ROCEPHIN 1000 MG IV (00:17)
[2025-01-16] MEDS: STERILE WATER FOR INJECTION 10 ML IV (00:18)
[2025-01-16 05:46] LABS: Hematocrit 37.1 % (39.0-52.0); Hemoglobin 12.4 g/dL (13.0-18.0); Mean Corp Hgb Conc. 33.4 g/dL (33.0-37.0); Mean Corpuscular Hgb 31.2 pg (27.0-31.0); Mean Corpuscular Volume 93.2 fL (80.0-94.0); Mean Platelet Volume 10.4 fL (7.4-10.4); Platelet Count 297 10^3/uL (130-400); Red Blood Cell Count 3.98 10^6/uL (4.70-6.10); Red Cell Dist. Width 12.2 % (11.5-14.5); White Blood Cell Count 7.9 10^3/uL (4.8-10.8)
[2025-01-16 06:00] VITALS: BMI 24.7
[2025-01-16 06:01] LABS: Blood Urea Nitrogen 13 mg/dl (9-20); Calcium 9.6 mg/dl (8.4-10.2); Carbon Dioxide 28 mmol/L (22-30); Chloride 99 mmol/L (98-107); Estimated Creatinine Clearance 62 ml/min; Glucose 93 mg/dl (70-99); Potassium 5.1 mmol/L (3.5-5.1); Sodium 135 mmol/L (135-145); eGFR > 60.00
[2025-01-16 07:10] VITALS: BP 117/66
[2025-01-16 07:14] LABS: Glucose - Point of Care 129 mg/dl (70-99)
[2025-01-16] MEDS: DUONEB 3 ML INH ×4 (07:28→19:47)
[2025-01-16] MEDS: PULMICORT 0.5 MG INH ×2 (07:28→19:46)
[2025-01-16] MEDS: NOVOLOG FLEXPEN-LOW RESISTANCE SC ×3 (07:54→17:01)
[2025-01-16] MEDS: LANTUS SC (07:55)
[2025-01-16] MEDS: NOVOLOG FLEXPEN SC ×3 (07:55→17:37)
[2025-01-16] MEDS: LIPITOR 20 MG PO (08:17)
[2025-01-16] MEDS: CLARITIN 10 MG PO (08:17)
[2025-01-16] MEDS: COZAAR 25 MG PO (08:17)
[2025-01-16] MEDS: COLACE 100 MG PO ×2 (08:17→21:06)
[2025-01-16] MEDS: LOW STRENGTH ASPIRIN 81 MG PO (08:17)
[2025-01-16] MEDS: VIBRAMYCIN 100 MG PO ×2 (08:17→21:06)
[2025-01-16] MEDS: MUCINEX 1200 MG PO ×2 (08:17→21:06)
[2025-01-16] MEDS: METAMUCIL, KONSYL 1 PACKET PO (08:18)
--- NOTE | 2025-01-16 09:59 | PTCARENOTE ---
pt received prn for cough this morning. marva moreno. oob to chair for breakfast and gave himself 5units of his own insulin. pt wearing dexcom from home. pt states he did not sleep well and is a bit tired today but sat is 96% on room air with
morning vital signs.
--- NOTE | 2025-01-16 12:25 | W.PN.HOSP.TC ---
Addendum entered and electronically signed by Sam Land MD 01/20/25 06:25:
Acute Hypoxic Respiratory Failure
Original Note:
Today's Communication/Plan
-
Patient not feeling well and is not ready to go home, case discussed with patient's nurse who said patient said he does not feel well enough to go home today
Continue antibiotics, pulmonary supportive measures
Assessment / Plan
Assessment / Plan
Physical Exam
General: Not in acute distress
HEENT: Moist mucous membranes
Respiratory: Scattered coarse breath sounds and rhonchi bilaterally. ON ROOM AIR.
Cardiac: S1/S2, Regular Rhythm and Regular Rate
GI: Soft, Non Tender, Non Distended and Normal Bowel Sounds
Musculoskeletal: No Cyanosis and No Edema
Neuro: AAO x 3
Assessment/Plan
Patient is a 64 y/o male with past medical history significant for ASCVD and Type 1 DM who presented complaining of cough and SOB x several days.
Influenza A with suspected bacterial superinfection
Concern for Sepsis POA
Pneumonia
Acute Hypoxemic Respiratory Insufficiency secondary to the above
- Now on room air
- Continue Tamiflu for 5 to 10 days total
- Cepacol, Claritin
- Continue Mucolytics, Tessalon Perles, prn Promethazine/codeine, benzocaine/menthol lozenges, and loratadine, saline nasal spray
- Duonebs and Pulmicort
- Continue Ceftriaxone and Doxycycline
- When patient is discharged, he will need LABA/ICS (i.e. Symbicort versus Breo versus an equivalent inhaler) and prn Duonebs nebulizer and nebulizer machine (to help with
secretion clearance)
- Patient was not improving, therefore: CT Chest ordered which showed no PE but did show bilateral pneumonia -- subsequent CT Abdomen Pelvis suggested improvement in PNA
- Given patient had not been improving, he requested pulmonary consult
- Legionella and strep are both negative
Constipation
Mild Proctocolitis on CT Imaging
-Bowel regimen
-Magnesium citrate and Milk and Molasses 500 cc
-From 01/14 to 01/15 patient had intense abdominal pain after the above bowel regimen, and due to concerns that patient may not be moving his bowels well and possible other bowel pathology, ordered CT Abdomen Pelvis and consulted colorectal surgery
-CT does not show much stool -- but there is mild thickening of the rectum and rectosigmoid area which is nonspecific, and there is no evidence of diverticulitis.
-Add bulking agent to diet -- start Psyllium husk slowly
ASCVD
CAD
Coronary artery calcifications and/or stents on CT Chest
Abnormal Troponin
- Suspect that this is non-ischemic myocardial injury secondary to acute illness.
- Continue daily ASA, statin, etc.
- Echocardiogram with normal left ventricular size, wall thickness and systolic function; no regional wall motion abnormalities; LV ejection fraction 54%; normal right ventricular size and function; moderate to severe
mitral regurgitation; mild tricuspid regurgitation.
- Cardiology was involved earlier in the hospitalization, outpatient ischemic evaluation.
Cholelithiasis with mild gallbladder wall thickening
- Present on CT Imaging
- Clinically no fever, no RUQ pain
- Check abdominal ultrasound
Bilateral nephrolithiasis
Lucency through the anterior and superior aspect of the right side of the T11 vertebral body, morphologic appearance suggesting acute to subacute fracture
-Present on CT imaging this admission
-Should follow-up outpatient with spine surgeon
DM-I
- Stable. Continue basal insulin.
- Follow glucose and cover with SSI as needed.
- A1C 7.2%
Benign Hypertension
- Stable. Continue losartan.
DVT Prophylaxis: Lovenox
Code Status: Full Code
Anticipated Discharge: 24 - 48 hours
Subjective/Interval History
-
Date of Service: January 16, 2025
Patient was seen and examined. He reports that he is still coughing a lot, feels his chest his congested and overall not feeling too good because of this.
Objective Data
-
Labs:
Laboratory Results
01/16/25
05:08
WBC 7.9
Hgb 12.4 L
Hct 37.1 L
Plt Count 297 D
Sodium 135
Potassium 5.1
Chloride 99
Carbon Dioxide 28
BUN 13
Creatinine 1.0
Glucose 93
Calcium 9.6
Vital Signs:
Vital Signs
Temp Pulse Resp BP Pulse Ox
99.1 F 84 14 117/66 96
01/16/25 07:10 01/16/25 11:34 01/16/25 11:34 01/16/25 08:17 01/16/25 09:58
I&O
01/15/25 01/16/25 01/17/25
06:59 06:59 06:59
Intake Total 900 / 900 1959
Balance 900 / 900 1959
[2025-01-16 12:54] LABS: Glucose - Point of Care 150 mg/dl (70-99)
[2025-01-16 15:10] VITALS: BP 123/58
--- NOTE | 2025-01-16 15:30 | W.PN.PUL3 ---
Today's Communication / Plan
-
Continue antibiotics
s/p course of Tamiflu (last day was 01/14)
Continue secretion clearance intervention
Supportive care: Antitussives, Mucolytics and loratidine
Continue with budesonide + DuoNebs, and he should be discharged home with a LABA/ICS (i.e. Symbicort versus Breo, versus an equivalent inhaler)
Case management consulted to get him a nebulizer kit for home use
Outpatient pulmonary follow-up will be arranged
Will follow
Assessment
-
64-year-old male with past medical history noted, came to the hospital with about 3 to 4 days of symptoms including coughing, shortness of breath. Initially evaluated at the urgent care. Diagnosed with influenza A. Due to lack of improvement
after 3 days on Tamiflu came to the hospital for evaluation. Found to have pneumonia. Admitted on 01/10/2025-continues to be symptomatic. Found to be mildly hypoxemic. We were consulted on 01/13/2025 for evaluation.
Acute respiratory insufficiency requiring supplemental oxygen. Now on room air, previously required 2 L supplemental oxygen.
Influenza A symptoms started about a week ago.
Likely bilateral bacterial pneumonia (R>L) superinfection-based on CTA Chest (from 01/13/2025) infiltrates
Acute/subacute cough
Abnormal troponin
Conditions present prior admission:
Type 1 diabetes
Hypertension
History of coronary artery disease-prior LAD stent
History of prior back surgery with hardware in place-2009 after a fall
Pulmonary history: None
Distant history of severe pneumonia 2009 recurrent intubation after fall/trauma
Non-smoker
-
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
Assessment and plan:
-
Clinical picture consistent with influenza A and suspected bacterial superinfection.
CTA chest from 01/13/2025 personally reviewed:
Examination is negative for pulmonary embolism.
Patchy parenchymal opacity bilaterally, greatest within the lower lobes and RUL --> this likely represents pneumonia. Minimal amount of left pleural fluid and trace amount of right pleural fluid.
Coronary artery calcifications and/or stents are present.
There is a lucency through the anterior and superior aspect of the right side of the T11 vertebral body, morphologic appearance suggesting acute to subacute fracture.
Streak artifact from fusion hardware from T6 through T10.
-
He remains symptomatic with coughing/nasal congestion/general malaise
Lung exam with bilateral crackles/rhonchi and squeaks.
-
Remains afebrile, and has normal WBC since admission
He has normal renal function, electrolytes are balanced. Normal LFTs.
-
Initially on 2 L-now on room air. Adequate oxygenation. Improved.
-
Continue ceftriaxone/doxycycline
Continue Tamiflu-5 to 10 days
Will obtain a sputum culture if able-pending
Negative Legionella and streptococcal pneumonia antigens in urine
Afebrile, recommend blood cultures if fever develops.
-
Symptomatic management:
Mucolytics
prn Antitussive-currently on Tessalon Perles
prn Promethazine/codeine
Continue benzocaine/menthol lozenges
Antihistamine-loratadine
Continue saline nasal spray
Continue Pulmicort nebulizer for symptomatic relief of coughing. While in the hospital --> should be discharged home on a LABA/ICS (i.e. Symbicort versus Breo versus an equivalent inhaler)
Continue DuoNebs to aid with secretion clearance --> I will consult case management to get him a nebulizer for home use (to be used prn with Duonebs)
Avoid systemic corticosteroids with type 1 diabetes-may be necessary if symptoms progress.
Continue Acapella device
-
As needed chest x-ray. Will need to repeat in the next several days to follow-up and small pleural effusions.
Patient will need radiographic follow-up in the outpatient setting.
-
Mild troponin increase:
Cardiology following-recommended outpatient evaluation.
Echocardiogram 01/10/2025 noted: Normal LVEF. Normal biventricular size and function. Moderate to severe MR. Mild TR.
Type 1 diabetes-continue insulin.
-
He does have intermittent abdominal pain and CT abdomen/pelvis on 01/15/2025 showed mild proctocolitis with cholelithiasis and mild gallbladder wall thickening with bilateral nephrolithiasis and bibasilar pneumonia ---> defer management of possible
cholecystitis to hospitalist team
-
DVT prophylaxis-Lovenox
-
Will follow
Total time spent today was 36 minutes for this encounter. Time includes reviewing laboratory test/imaging results, reviewing pertinent medical records, obtaining and reviewing medical history, performing an appropriate exam, ordering medications,
tests and procedures. Time also includes documentation of this encounter, coordinating patient care and communicating with other healthcare professionals. Total time does not include separately billed tests performed on this date of service.
Subjective Data
-
Date of Service:
Date of Service: January 16, 2025
Chief Complaint: Pulmonary Follow Up (Influenza and/bacterial pneumonia)
Subjective:
Patient seen today at bedside. Feels more fatigued today. Still getting coughing spells. On room air breathing comfortably. Denies chest pain, GAUTHIER, fevers or chills.
Review of Systems
General: Other (Negative unless mentioned above)
Objective Data
Data Reviewed
Vital Signs / I&O / Oxygen:
Vital Signs
Temp Pulse Resp BP Pulse Ox
99.1 F 85 12 117/66 96
01/16/25 07:10 01/16/25 08:17 01/16/25 07:29 01/16/25 08:17 01/16/25 07:29
Intake and Output
01/15/25 01/16/25 01/17/25
06:59 06:59 06:59
Intake Total 900 / 900 1959
Balance 900 / 900 1959
SaO2 96
Nasal Cannula flow liters per 2
minute
Physical Exam
General: Respiratory Distress (n), Comfortable, Chills (n) and Sweats (n)
HEENT: Normocephalic and Anicteric
Cardiovascular: S1-S2 and Peripheral Edema (n)
Respiratory: Wheeze (n), Crackles (Bilaterally), Rhonchi (Bilaterally), Non-Labored Respirations and Other (Occasional inspiratory squeaks heard bilaterally)
GI: Soft, Non Distended, Non Tender and Normal Bowel Sounds
Neurology: AO x 3 and Tremors (n)
Skin: Warm, Dry and Cyanosis (n)
Labs/Micro/Reports
Lab Data
01/16/25 05:08
01/16/25 05:08
Microbiology
01/13/25 17:50 Urine Legionella Urinary Antigen - Final
Negative for Legionella pneumophila Serogroup 1 antigen.
A negative result does not rule out the possiblity of
Legionella infection due to other serogroups or species of
Legionella. Clinical correlation is recommended.
01/13/25 17:50 Urine Streptococcus pneumoniae Antigen (M - Final
Negative for Streptococcus pneumoniae antigen.
A negative result does not exclude infection with
Streptococcus pneumoniae. Clinical correlation is
recommended.
--- NOTE | 2025-01-16 16:05 | CM ---
Addendum entered by Mi Nguyen 01/16/25 16:15:
Faxed order form, clinicals and face sheet to [facility] for pts nebulizer
CM will follow up in AM
Plan - anticipate home with Nebulizer when medically stable
Original Note:
CM consult for Nebulizer
Called pts Pharmacy - [facility] - closed today per message
Spoke with pt aware
Will f/u with pt
[2025-01-16 16:48] LABS: Glucose - Point of Care 108 mg/dl (70-99)
[2025-01-16] MEDS: LOVENOX SC (17:44)
[2025-01-16] MEDS: TESSALON PERLES 200 MG PO (21:06)
[2025-01-16] MEDS: MELATONIN 10 MG PO (22:07)
[2025-01-16 22:38] LABS: Glucose - Point of Care 73 mg/dl (70-99)
[2025-01-16 23:17] VITALS: BP 116/63
[2025-01-17] MEDS: ROCEPHIN 1000 MG IV (00:10)
[2025-01-17] MEDS: STERILE WATER FOR INJECTION 10 ML IV (00:11)
[2025-01-17 01:34] LABS: Glucose - Point of Care 68 mg/dl (70-99)
[2025-01-17 02:13] LABS: Glucose - Point of Care 124 mg/dl (70-99)
--- NOTE | 2025-01-17 03:08 | PTCARENOTE ---
Pt notified this RN of low blood sugar. BS 68. Reports no symptoms. 4 oz juice given. recheck sugar 124. Educated pt on hospital protocol for hypoglycemia. Pt states understanding and refusal for q2h recheck. Pt has Dexcom and will notify if sugar
is low. Pt resting comfortably in bed, call plunkett within reach.
[2025-01-17 05:52] VITALS: BMI 26.3
[2025-01-17] MEDS: PULMICORT 0.5 MG INH (07:26)
[2025-01-17] MEDS: DUONEB 3 ML INH (07:26)
[2025-01-17 07:30] VITALS: BP 115/61
[2025-01-17 08:10] LABS: Glucose - Point of Care 154 mg/dl (70-99)
[2025-01-17] MEDS: NOVOLOG FLEXPEN-LOW RESISTANCE SC ×2 (09:00→12:38)
[2025-01-17] MEDS: NOVOLOG FLEXPEN SC ×2 (09:00→12:38)
[2025-01-17] MEDS: LANTUS SC (09:01)
[2025-01-17] MEDS: VIBRAMYCIN 100 MG PO (09:12)
[2025-01-17] MEDS: COZAAR 25 MG PO (09:12)
[2025-01-17] MEDS: CLARITIN 10 MG PO (09:12)
[2025-01-17] MEDS: LOW STRENGTH ASPIRIN 81 MG PO (09:12)
[2025-01-17] MEDS: TESSALON PERLES 200 MG PO (09:12)
[2025-01-17] MEDS: MUCINEX 1200 MG PO (09:12)
[2025-01-17] MEDS: METAMUCIL, KONSYL 1 PACKET PO (09:13)
[2025-01-17] MEDS: COLACE 100 MG PO (09:13)
[2025-01-17] MEDS: LIPITOR 20 MG PO (09:13)
--- NOTE | 2025-01-17 09:54 | PN.CDI ---
CDI
- -
CDI:
Physician Documentation Request
Admit Date: 01/10/25 01:50
Dear Doctor Emery,
Clinical Indicators:
Patient admitted with Influenza A pneumonia; presenting with cough/dyspnea/tachypnea.
01/14 PN, 'Acute Hypoxemic Respiratory Insufficiency'
02 requirements:
01/12/25
11:27 01/12/25
11:57
SaO2 86
Nasal Cannula flow liters per minute 6
Please clarify which of the following accurately represents the patient's respiratory status:
Acute hypoxic respiratory failure
Acute hypoxic respiratory insufficiency only
Other
Additional information for Respiratory Failure:
Recognized criteria for Respiratory Failure (Source: [facility] Hospitalist Sep 2013)
ABGs: (1 or more) Symptoms Please indicate type if known
1. p)2 <60 or RA SPO2 <91% on RA 1. Tachypnea, SOB, dyspnea Hypoxic
2. pCO2 50 and pH <7.35 2. Use of accessory muscles Hypercapnic
3. pO2 decrease of pCO2 increase by 3. Pallor or cyanosis Hypoxic and Hypercapnic
10 mmHg from baseline if known 4. Anxiety or restlessness Unable to determine
5. Unable to speak in full sentences
Supplemental O2 of > 40% (5LPM) Intubation is not required
Use of terms such as suspected, likely, concern for, or probable (associated with a specific diagnosis that is being evaluated, monitored, or treated as if it exists) are acceptable and can be coded in the inpatient setting, when documented at the
time of discharge.
Thank you,
Rachel Martino RN BSN
CDI Specialist
available via tiger text
Please use your independent medical judgment in providing your response.
--- NOTE | 2025-01-17 10:36 | CM ---
Addendum entered by Isela Sommers 01/17/25 13:02:
Mackenzie from [facility] confirmed that nebulizer will be delivered here to the hospital today.
Original Note:
Patient seen at bedside.
Faxed script for nebulizer to Mackenzie from [facility] today
She received fax, She states will have nebulizer delivered today
PLAN: home, no needs anticipated
son to transport
[2025-01-17] MEDS: DUONEB INH (11:21)
[2025-01-17 11:59] LABS: Glucose - Point of Care 93 mg/dl (70-99)
--- NOTE | 2025-01-17 12:03 | W.DS.TRANS ---
DC Summary - Escrow Representative
-
Discharge Instructions:
Discharge Diagnosis/Procedures Influenza.
Community acquired pneumonia
Diet Diabetic, Carb Controlled
Others Tests CXR to follow with bilateral pneumonia in 3-4
weeks
Instructions:
Stand-Alone Forms:
Changes to Home Medications: Yes
Discharge Medications:
DC Medications w/original date entered in [employer]
atorvastatin 20 mg tablet 20 mg PO DAILY High Cholesterol 01/13/11
losartan 25 mg tablet 25 mg PO DAILY Blood Pressure 08/21/14
albuterol sulfate 90 mcg/actuation aerosol inhaler 2 puff inhalation Q6H PRN sob 01/10/25
aspirin 81 mg tablet,delayed release 81 mg PO DAILY Blood Clot Prevention/Tx 01/10/25
insulin aspart U-100 100 unit/mL (3 mL) subcutaneous pen 5 unit SC AC Diabetes 01/10/25
insulin degludec 100 unit/mL (3 mL) subcutaneous pen (Tresiba FlexTouch U-100 insulin) 14 unit SC DAILY Diabetes 01/10/25
benzocaine 6 mg-menthol 10 mg lozenges (Chloraseptic Sore Throat) 1 sujit PO Q4HPRN PRN cough/sore throat #90 ea 01/17/25
benzonatate 100 mg capsule 200 mg (2 x 100 mg) PO TIDPRN PRN cough #90 caps 01/17/25
budesonide 0.5 mg/2 mL suspension for nebulization 0.5 mg (2 mL) inhalation R BID #60 mL 01/17/25
cefuroxime axetil 500 mg tablet 500 mg PO BID #6 tabs 01/17/25
doxycycline hyclate 100 mg capsule 100 mg PO Q12 #6 caps 01/17/25
guaifenesin 600 mg tablet, extended release 12 hr 1,200 mg (2 x 600 mg) PO Q12 #60 tabs 01/17/25
loratadine 10 mg tablet 10 mg PO DAILY #30 tabs 01/17/25
promethazine 6.25 mg-codeine 10 mg/5 mL syrup 5 ml PO Q4HPRN PRN Cough #473 mL 01/17/25
Home Medication Changes
Antibiotics
ICS-LABA
Antitussives
Pending Results: No
--- NOTE | 2025-01-17 12:42 | PTCARENOTE ---
Addendum entered by Evette Hanna RN 01/17/25 14:06:
pt d/c to home after nebulizers delivered. pt OK to shower order in and pt is going to shower prior to discharge. pt is a self in the room and came off of droplet precautions this shift for this RN.
Original Note:
pt refused all morning lab work. aware.
[2025-01-17 14:37] VITALS: BP 110/62
== END 2025-01-17 14:54 | disposition home or self-care (01) | DRG 871 ==
LOC: 2 NORTH 01:50
PROVIDERS: Hospitalist; ADMITTING PHYSICIAN Hospitalist; ATTENDING PHYSICIAN Internal Medicine; CONSULT PHYSICIAN Internal Medicine Cardiovascular Disease; CONSULT PHYSICIAN Internal Medicine Critical Care Medicine; CONSULT PHYSICIAN Surgery; EMERGENCY PHYSICIAN Emergency Medicine; FAMILY PHYSICIAN Family Medicine
DX: A41.89 Other specified sepsis (principal); J10.00 Influenza due to other identified influenza virus with unspecified type of pneumonia; J96.01 Acute respiratory failure with hypoxia; I5A Non-ischemic myocardial injury (non-traumatic); K59.00 Constipation, unspecified; I25.10 Atherosclerotic heart disease of native coronary artery without angina pectoris; E10.9 Type 1 diabetes mellitus without complications; I10 Essential (primary) hypertension; Z79.4 Long term (current) use of insulin; Z79.82 Long term (current) use of aspirin; Z95.5 Presence of coronary angioplasty implant and graft
CPT/HCPCS: 71046; 71275; 74177; 76705; 80048; 80053; 82962; 83036; 83735; 83880; 84484; 85025; 85027; 87449; 87502; 87899; 93005; 93306; 94640; 96374; 96375; 97163; 97166; 97530; 99285; Q9967

== ENCOUNTER 2025-02-12 00:43 | Emergency (ER) | payer OTHER, MEDICARE, SELFPAY ==
[2025-02-12 01:30] VITALS: BMI 27.1
--- NOTE | 2025-02-12 02:29 | ED.GENMED ---
History of Present Illness
General
Chief Complaint: Fall
Source: patient
Time Seen by Provider: 02/12/25 02:19
History of Present Illness
History of Present Illness:
65-year-old male states he was watching TV, had just had 3 beers, and his monitor told him that his blood sugar was low. He stood up to go get some food, tripped over a footstool onto a carpeted floor. No loss of consciousness. He was able to get
up on his own. However, he noted a laceration to the right forehead area which prompted his visit here. He denies neck pain, headache, nausea, vomiting, numbness, tingling, visual changes, chest pain, shortness of breath, or other complaints.
Past History
Past History
ED Past Medical History: CAD (2 stents), GERD, HTN, Hypercholesterolemia, IDDM and Other (fx of cervical and thoracic spine-multiple trauma after falling from tree 2008)
ED Past Surgical History: Cardiac (PTCA with stent x 2), Orthopedic (Cervical and thoracic vertebral fracture repair) and Other (trach, g-tube, fusion of spine-2009/multiple trauma)
Social History
Tobacco: Non-smoker
Alcohol: Occasional
Drug: None
Personal: Single
Living: with family
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
Family History
Family History: Other (Noncontributory)
Phy Exam
Physical Exam
Physical Exam:
GENERAL: Alert , in no apparent distress
EYE: pupils equal and reactive, EOMI, no nystagmus, no photophobia
NECK: Supple, no significant adenopathy, no midline tenderness.
ENT: o/p clr, mmm, no tucker, no raccoon.
CARDIAC: Regular rate and rhythm .
LUNGS: Clear breath sounds bilaterally, no acute respiratory distress, no wheezes/rales/rhonchi
ABDOMEN: Soft, without focal tenderness, no r/g
NEUROLOGICAL: Alert and oriented, no focal neuro deficits
SKIN: Warm and dry, as shaped laceration noted at the forehead area measuring approximately 6 cm to the level of soft tissue
MUSCULOSKELETAL: No edema, well perfused.
PSYCH: Normal and appropriate interaction.
Course
Orders/Labs/Results
Orders:
Orders
02/12/25 01:00
CT Cervical Spine W/o Iv Contr Urgent
Reason For Exam: head injury, Fall
CT Head W/o Iv Contrast Urgent
Comment:
Reason For Exam: fall, intoxicated
Vital Signs
Initial and Last Documented VS:
Initial Vital Signs
Temp Pulse Resp Pulse Ox
97.8 F 83 20 97
02/12/25 00:45 02/12/25 00:45 02/12/25 00:45 02/12/25 00:45
Last Documented Vital Signs
Temp Pulse Resp BP Pulse Ox
97.8 F 83 20 107/66 97
02/12/25 00:45 02/12/25 00:45 02/12/25 00:45 02/12/25 03:14 02/12/25 02:44
Procedures
Laceration Closure
Forehead:
Status of Wound: clean
Size of Wound in cm: 6
Description of Wound Edges: ragged
Preparation: cleaned with saline
Anesthesia: 1% Lidocaine with epi
Revision/Debridement: routine- no revision
Wound exploration: explored to base- no FB
Type of Closure: single layer closure
Skin Closure Material: 5-0 prolene
Number of sutures: 15
*Critical Care Note
Total Time (30-74mins, 75-104mins- exclusive of procedures): Not Applicable
Update Note
Update Note:
Patient presents to the Emergency Department with fall
Number and Complexity of Problems Addressed at the Encounter
� Chronic conditions affecting care:
� Acute Exacerbation and/or Progression of Chronic Illness:
� Differential Diagnosis includes: But not limited to intracranial bleed, cervical fracture, concussion, etc. etc.
Amount and/or Complexity of Data to be Reviewed and Analyzed
� I performed an independent evaluation of and my interpretation is:
EKG:
CT: Read by vision C-spine no acute fracture or alignment abnormality mild degenerative changes nonspecific patchy groundglass of the visualized right lung apex consider follow-up with dedicated elective CT scan. CT head no
acute intracranial hemorrhage mass effect or midline shift. Left frontal scalp hematoma. No acute calvarial fracture. Chronic appearing small infarcts in the right frontal lobe. Mild global volume loss and chronic small vessel ischemic white
matter change.
Xrays:
Laboratory Studies:
Other:
� Review of other/old records reveals:
� Clinical information was obtained by an independent historian:
� Prescriptions/Medications Considered but not given:
� Further testing considered but not performed:
Risk of Complications and/or Morbidity or Mortality of Patient Management
� Social determinants of health affecting care:
� Discussion with other providers (PCP, Hospitalists, Consultants, etc):
� Escalation of care including admission/observation vs risk of discharge considered:TD UTD. pt advised re:wound care, suture removal, and f/u. Patient made aware of CT results and importance of follow-up concerning
ED Attending Note
-
Portions of this chart may have been created with voice recognition software.� Occasional wrong word or��sound alike� substitutions may have occurred due to the inherent limitations of voice recognition software.
Discharge Plan
Departure
Patient Disposition: Home (Routine Discharge)
Date of Disposition: 02/12/25
Time of Disposition: 03:16
Patient with high blood pressure during this ER visit?: No
Condition: Good
Discharge Problem:
Laceration
Instructions: Laceration Repair With Stitches (DC)
Prescriptions:
No Action
atorvastatin 20 MG tablet
20 mg PO DAILY
losartan 25 MG tablet
25 mg PO DAILY
aspirin 81 mg Tablet,Delayed Release (Dr/Ec)
81 mg PO DAILY
albuterol sulfate 90 mcg/actuation Hfa Aerosol Inhaler
2 puff INHALATION Q6H PRN (Reason: sob)
insulin aspart U-100 100 unit/mL (3 mL) Insulin Pen
5 unit SC AC
insulin degludec [Tresiba FlexTouch U-100] 100 unit/mL (3 mL) Insulin Pen
14 unit SC DAILY
loratadine 10 mg Tablet
10 mg PO DAILY Qty: 30 0RF
Chloraseptic Sore Throat 6-10 mg Lozenge
1 sujit PO Q4HPRN PRN (Reason: cough/sore throat) Qty: 90 0RF
guaifenesin 600 mg Tablet Extended Release 12hr
1,200 mg PO Q12 Qty: 60 0RF
promethazine-codeine 6.25-10 mg/5 mL Syrup
5 ml PO Q4HPRN PRN (Reason: Cough) Qty: 473 0RF
budesonide 0.5 mg/2 mL Suspension For Nebulization
0.5 mg inhalation R BID Qty: 60 0RF
doxycycline hyclate 100 mg Capsule
100 mg PO Q12 Qty: 6 0RF
benzonatate 100 mg Capsule
200 mg PO TIDPRN PRN (Reason: cough) Qty: 90 0RF
cefuroxime axetil 500 mg tablet
500 mg PO BID Qty: 6 0RF
Referrals:
UNKNOWN - PT DOES,NOT KNOW [Family Provider] -
Activity Restrictions/Additional Instructions:
YOU HAD 15 SUTURES PLACED. THEY SHOULD BE REMOVED IN 5 DAYS. IF YOU NOTICE REDNESS/WARMTH/SWELLING/DRAINAGE, INCREASING PAIN, FEVER, severe headache, vomiting, or other worrisome signs, please return to the ER immediately. YOU HAVE FINDINGS ON
YOUR CAT SCAN THAT REQUIRE CLOSE FOLLOW UP. PLEASE HAVE YOUR FAMILY DOCTOR REVIEW THESE RESULTS THIS WEEK! (THE FINAL RESULTS WILL BE AVAILABLE BY TOMORROW.)
Interventions
Interventions:
*Risk Screen - Suicide Last Done: 02/12/25 00:45
*General Assessment Last Done: 02/12/25 00:45
*Neglect/Abuse Screening Last Done: 02/12/25 00:45
*ED- Fall Risk Assessment Last Done: 02/12/25 00:45
*ED COVID-19 Vaccine History Last Done: 02/12/25 00:45
*Nursing Disposition Last Done: 02/12/25 03:10
ED-Musculoskeletal Assessment Last Done: 02/12/25 01:30
ED- Neurological Assessment Last Done: 02/12/25 01:30
ED-Skin Assessment Last Done: 02/12/25 01:30
Discharge Date and Time
Discharge Date/Time: 02/12/25 03:10
Print Language: BOTSWANAN
[2025-02-12 03:14] VITALS: BP 107/66
== END 2025-02-12 03:10 | disposition home or self-care (01) ==
LOC: EMR 00:43
PROVIDERS: EMERGENCY PHYSICIAN Emergency Medicine
DX: S01.81XA Laceration without foreign body of other part of head, initial encounter (principal); W18.09XA Striking against other object with subsequent fall, initial encounter; E11.9 Type 2 diabetes mellitus without complications; E78.00 Pure hypercholesterolemia, unspecified; I10 Essential (primary) hypertension; I25.10 Atherosclerotic heart disease of native coronary artery without angina pectoris; Z95.5 Presence of coronary angioplasty implant and graft; Z98.1 Arthrodesis status
CPT/HCPCS: 12014; 99284; 70450; 72125

== ENCOUNTER 2025-02-13 09:35 | Emergency (ER) | payer OTHER, MEDICARE, SELFPAY ==
[2025-02-13 09:45] VITALS: BP 169/79
--- NOTE | 2025-02-13 10:57 | ED.GENMED ---
History of Present Illness
General
Chief Complaint: Facial Problem
Source: patient
Time Seen by Provider: 02/13/25 10:45
History of Present Illness
History of Present Illness:
This is a 65-year-old male who presents for concerns of bruising to the left upper eyelid as well as some swelling. Patient states he is worried that what he put on his wound caused this. He was seen on Friday night after head injury and released
early Friday morning. He had 15 stitches placed in the left forehead. He had a CAT scan of his head. Patient states he did have a little bit of a headache yesterday but felt it was expected. Patient denies any new neurologic complaints. He
has been putting petroleum jelly on the wound. Vision is normal.
Past History
Past History
ED Past Medical History: CAD (2 stents), GERD, HTN, Hypercholesterolemia, IDDM and Other (fx of cervical and thoracic spine-multiple trauma after falling from tree 2008)
ED Past Surgical History: Cardiac (PTCA with stent x 2), Orthopedic (Cervical and thoracic vertebral fracture repair) and Other (trach, g-tube, fusion of spine-2009/multiple trauma)
Social History
Tobacco: Non-smoker
Alcohol: Occasional
Drug: None
Personal: Single
Living: with family
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
Family History
Family History: Other (Noncontributory)
Phy Exam
Physical Exam
Physical Exam:
CONSTITUTIONAL Vital signs reviewed, Patient alert and oriented to person, place and time. Well-appearing
HEAD stitches in place to a jagged left forehead wound. There is no bleeding. No redness. No drainage. Wound is well-approximated and looks good
EYES minor swelling noted to left upper lid with minor amount of ecchymosis just to the upper lid, Extraocular muscles intact, Conjunctiva normal, Sclera normal. Pupils equal round reactive to light
NECK normal range of motion, Trachea midline, no jugular venous distention.
RESP no respiratory distress
BACK No obvious deformities
UPPER EXTREMITY Gross Range of motion normal, gross motor strength normal
LOWER EXTREMITY Gross range of motion normal, Gross motor strength normal
NEURO Speech normal, No focal motor deficits include, [place] coma scale 15, Memory normal, Cranial Nerves intact to screening exam.
SKIN Skin warm, dry, and normal in color.
PSYCHIATRIC Patient oriented to person place and time, Normal affect.
Course
Vital Signs
Initial and Last Documented VS:
Initial Vital Signs
Temp Pulse Resp BP Pulse Ox
98.0 F 69 16 169/79 98
02/13/25 09:45 02/13/25 09:45 02/13/25 09:45 02/13/25 09:45 02/13/25 09:45
Last Documented Vital Signs
Temp Pulse Resp BP Pulse Ox
98.0 F 69 16 169/79 98
02/13/25 09:45 02/13/25 09:45 02/13/25 09:45 02/13/25 09:45 02/13/25 09:45
MDM/Problems Addressed
MDM/Problems Addressed:
Dependent edema from injury. Left eye ecchymosis, uncontrolled hypertension
*Pulse Oximetry
Patient hypoxic: no
*Critical Care Note
Total Time (30-74mins, 75-104mins- exclusive of procedures): Not Applicable
Data Reviewed
Source: patient
Further Testing Considered But Not Given:
Consider repeat head CT but no neurological plaints and headache looks normal
Patient Management
Escalation/DeEscalation of care consider admission/obs:
Patient appears well. Swelling and ecchymosis is dependent and expected. No new complaints. Otherwise appears well. Wound is well-approximated
ED Attending Note
-
Portions of this chart may have been created with voice recognition software.� Occasional wrong word or��sound alike� substitutions may have occurred due to the inherent limitations of voice recognition software.
Discharge Plan
Departure
Patient Disposition: Home (Routine Discharge)
Date of Disposition: 02/13/25
Time of Disposition: 10:57
Patient with high blood pressure during this ER visit?: Yes
Discharge Problem:
Head injury, Periorbital ecchymosis of left eye
Instructions: Head injury in adults, BLOOD PRESSURE
Prescriptions:
No Action
atorvastatin 20 MG tablet
20 mg PO DAILY
losartan 25 MG tablet
25 mg PO DAILY
aspirin 81 mg Tablet,Delayed Release (Dr/Ec)
81 mg PO DAILY
albuterol sulfate 90 mcg/actuation Hfa Aerosol Inhaler
2 puff INHALATION Q6H PRN (Reason: sob)
insulin aspart U-100 100 unit/mL (3 mL) Insulin Pen
5 unit SC AC
insulin degludec [Tresiba FlexTouch U-100] 100 unit/mL (3 mL) Insulin Pen
14 unit SC DAILY
loratadine 10 mg Tablet
10 mg PO DAILY Qty: 30 0RF
Chloraseptic Sore Throat 6-10 mg Lozenge
1 sujit PO Q4HPRN PRN (Reason: cough/sore throat) Qty: 90 0RF
guaifenesin 600 mg Tablet Extended Release 12hr
1,200 mg PO Q12 Qty: 60 0RF
promethazine-codeine 6.25-10 mg/5 mL Syrup
5 ml PO Q4HPRN PRN (Reason: Cough) Qty: 473 0RF
budesonide 0.5 mg/2 mL Suspension For Nebulization
0.5 mg inhalation R BID Qty: 60 0RF
doxycycline hyclate 100 mg Capsule
100 mg PO Q12 Qty: 6 0RF
benzonatate 100 mg Capsule
200 mg PO TIDPRN PRN (Reason: cough) Qty: 90 0RF
cefuroxime axetil 500 mg tablet
500 mg PO BID Qty: 6 0RF
Activity Restrictions/Additional Instructions:
Keep wound clean and dry. Use Vaseline as discussed. Return immediately for intractable vomiting, worsening headache or any other concerns.
Interventions
Interventions:
*Risk Screen - Suicide Last Done: 02/13/25 09:45
*Neglect/Abuse Screening Last Done: 02/13/25 09:45
Discharge Date and Time
Print Language: ANDORRAN
== END 2025-02-13 11:14 | disposition home or self-care (01) ==
LOC: EMR 09:35
PROVIDERS: EMERGENCY PHYSICIAN Emergency Medicine; FAMILY PHYSICIAN Family Medicine
DX: S00.12XA Contusion of left eyelid and periocular area, initial encounter (principal); X58.XXXA Exposure to other specified factors, initial encounter; E11.9 Type 2 diabetes mellitus without complications; E78.00 Pure hypercholesterolemia, unspecified; I10 Essential (primary) hypertension; I25.10 Atherosclerotic heart disease of native coronary artery without angina pectoris; Z79.4 Long term (current) use of insulin; Z95.5 Presence of coronary angioplasty implant and graft
CPT/HCPCS: 99282

== ENCOUNTER 2025-08-12 09:15 | Emergency (ER) | payer OTHER, SELFPAY ==
[2025-08-12 09:17] VITALS: BP 177/83
[2025-08-12] MEDS: LIDOCAINE 4% PATCH 1 PATCH TOPICAL (11:16)
[2025-08-12] MEDS: VALIUM 5 MG PO (11:16)
--- NOTE | 2025-08-12 11:17 | ED.GENMED ---
History of Present Illness
General
Chief Complaint: Back Pain
Source: patient and records
Time Seen by Provider: 08/12/25 10:38
History of Present Illness
History of Present Illness:
65-year-old male with past medical history of CAD, type 1 diabetes, recent diagnosis of CVA with right ICA occlusion, hypercholesterolemia and hypertension presenting to the emergency department for evaluation of left-sided back pain described to be
mild last night prior to bed, this morning upon awakening severe with difficulty getting out of bed and with any movement/range of motion. Patient did take some Aleve prior to arrival but without any relief. He denies any focal weakness or
numbness, bowel or urinary incontinence, saddle anesthesias, fevers or infectious symptoms. Patient notes to me the recent diagnosis of the internal carotid artery occlusion and stroke that was found on outpatient imaging which patient states is
the likely cause of his chronic gait imbalance. He reports that he was told that there was no treatment for the occlusion recommended and that he does take a daily 81 mg aspirin. Secondarily patient also notes a history of previous 10 thoracic
vertebral fractures and 3 cervical spine fractures after a fall from a tree stand requiring surgical fusion of the thoracic spine. Patient states that he normally does not have back pain like this. No other concerns presently
Past History
Past History
ED Past Medical History: CAD (2 stents), GERD, HTN, Hypercholesterolemia, IDDM and Other (fx of cervical and thoracic spine-multiple trauma after falling from tree 2008)
ED Past Surgical History: Cardiac (PTCA with stent x 2), Orthopedic (Cervical and thoracic vertebral fracture repair) and Other (trach, g-tube, fusion of spine-2009/multiple trauma)
Social History
Tobacco: Non-smoker
Alcohol: Occasional
Drug: None
Personal: Single
Living: with family
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
Family History
Family History: Other (Noncontributory)
Review of Systems
Review of Systems
All Other Systems: ROS reviewed and negative except as documented in HPI and ROS
Phy Exam
Physical Exam
Physical Exam:
GENERAL: Alert , in no apparent distress but does ambulate with a slower shuffling gait
EYE: clear conjunctiva b/l
NECK: Supple
ENT: mmm.
ABDOMEN: Soft, without focal tenderness, no r/g, no cvat
BACK: limited range of motion secondary to pain, no focal tenderness, no midline bony tenderness, no rashes
NEUROLOGICAL: Alert and oriented, no focal neuro deficits. Patellar deep tendon reflexes intact and equal bilaterally, sensation grossly intact and equal to light touch bilateral lower extremities
SKIN: Warm and dry, skin intact.
MUSCULOSKELETAL: No edema, well perfused. EHL intact bilaterally
PSYCH: Normal and appropriate interaction.
Scores
Heart Failure Risk
Heart Failure Risk Score: Not Applicable
Heart Score for Chest Pain Patients
STEMI patient?: Not applicable
Withdrawal Assessment of Alcohol
Withdrawal Assessment Completed?: Not applicable
Course
Orders/Labs/Results
Orders:
Orders
08/12/25 11:04
Diazepam [Valium] 5 mg PO NOW STA
Lidocaine [Lidocaine 4% Patch] 1 patch TOPICAL NOW STA
Apply Lidocaine patch(s) to:: left lower back
CR Lumbar Spine Comp Min 4 Vw* Urgent
Comment:
Reason For Exam: low back pain
08/12/25 11:09
Urinalysis Reflex To Culture Urgent
Date Specimen was Collected: 08/12/25
Time Specimen was Collected: 11:07
Vital Signs
Initial and Last Documented VS:
Initial Vital Signs
Temp Pulse Resp BP Pulse Ox
98.7 F 80 16 177/83 100
08/12/25 09:17 08/12/25 09:17 08/12/25 09:17 08/12/25 09:17 08/12/25 09:17
Last Documented Vital Signs
Temp Pulse Resp BP Pulse Ox
98.7 F 80 16 177/83 100
08/12/25 09:17 08/12/25 09:17 08/12/25 09:17 08/12/25 09:17 08/12/25 11:22
MDM/Problems Addressed
Differential Diagnosis Includes:
Musculoskeletal back pain
Lumbar strain
Spinal stenosis
Disc herniation/nerve impingement
Less concern for an acute infectious etiology
Thromboembolic event considered given his recent history however given the chronicity of that diagnosis I am less suspicious for causing acute complication
MDM/Problems Addressed:
65-year-old male presenting to the ER for evaluation of left lower back pain, mild yesterday, severe this morning. No relief with Aleve reported. He is ambulatory here, no focal neurologic deficits noted. I was able to review patient's records
from outpatient via [place] physician link and was able to review the MRI/MRA/CTA which showed the chronic findings. Patient has been seen by primary care provider as well as neurology and recommended for medical management and continued follow-up. I
do not suspect his neurologic issues to be the cause of his current back pain today. Given he already took high-dose NSAIDs will avoid further NSAIDs here, would have like to prescribe steroid taper however patient is a insulin-dependent diabetic
and given his recent past medical history I do have concern for potentially causing hyperglycemia with the steroid. Will trial a muscle relaxant and topical lidocaine patch. Anticipate patient will need further outpatient management as needed.
Chronic conditions affecting care: DM
*Radiology
Radiology exam reviewed: preliminary read by ED provider (Chronic changes, no acute fracture)
*Pulse Oximetry
SaO2: 100
Oxygen Mode of Delivery: Room air
Patient hypoxic: no
*Critical Care Note
Total Time (30-74mins, 75-104mins- exclusive of procedures): Not Applicable
Data Reviewed
Review of Other/Old Records Reveals: Labs, Records and Radiology Studies
Patient Management
Escalation/DeEscalation of care consider admission/obs:
Patient's x-ray imaging unremarkable, urine without any hematuria or signs of infection. Discussed with patient that I felt his symptoms were likely mechanical and that it might be a few days of dealing with the pain but if that symptoms continue
may need to follow-up with orthopedics/back specialist/pain management for further evaluation/imaging. We discussed wanting to avoid steroids due to his known insulin-dependent diabetes which patient is in agreement with. Will add on a muscle
relaxer to patient's treatment regimen in addition to the anti-inflammatories and topical agents. Aware of return precautions to the ER.
ED Attending Note
-
Portions of this chart may have been created with voice recognition software.� Occasional wrong word or��sound alike� substitutions may have occurred due to the inherent limitations of voice recognition software.
Discharge Plan
Departure
Patient Disposition: Home (Routine Discharge)
Date of Disposition: 08/12/25
Time of Disposition: 12:31
Patient with high blood pressure during this ER visit?: Yes
Discharge Problem:
Dorsalgia
Instructions: Low Back Pain (DC)
Prescriptions:
New
baclofen 10 mg tablet
10 mg PO BID Qty: 10 0RF
No Action
atorvastatin 20 MG tablet
20 mg PO DAILY
losartan 25 MG tablet
25 mg PO DAILY
aspirin 81 mg Tablet,Delayed Release (Dr/Ec)
81 mg PO DAILY
albuterol sulfate 90 mcg/actuation Hfa Aerosol Inhaler
2 puff INHALATION Q6H PRN (Reason: sob)
insulin aspart U-100 100 unit/mL (3 mL) Insulin Pen
5 unit SC AC
insulin degludec [Tresiba FlexTouch U-100] 100 unit/mL (3 mL) Insulin Pen
14 unit SC DAILY
loratadine 10 mg Tablet
10 mg PO DAILY Qty: 30 0RF
Chloraseptic Sore Throat 6-10 mg Lozenge
1 sujit PO Q4HPRN PRN (Reason: cough/sore throat) Qty: 90 0RF
guaifenesin 600 mg Tablet Extended Release 12hr
1,200 mg PO Q12 Qty: 60 0RF
promethazine-codeine 6.25-10 mg/5 mL Syrup
5 ml PO Q4HPRN PRN (Reason: Cough) Qty: 473 0RF
budesonide 0.5 mg/2 mL Suspension For Nebulization
0.5 mg inhalation R BID Qty: 60 0RF
doxycycline hyclate 100 mg Capsule
100 mg PO Q12 Qty: 6 0RF
benzonatate 100 mg Capsule
200 mg PO TIDPRN PRN (Reason: cough) Qty: 90 0RF
cefuroxime axetil 500 mg tablet
500 mg PO BID Qty: 6 0RF
Referrals:
Afsaneh Sanchez MD [Family Provider, Family Practice]
Interventions
Interventions:
*Nursing Disposition Last Done: 08/12/25 12:48
ED-Musculoskeletal Assessment Last Done: 08/12/25 10:45
Discharge Date and Time
Discharge Date/Time: 08/12/25 12:48
Print Language: INDONESIAN
[2025-08-12 11:18] LABS: Urine Character Clear (Clear)
== END 2025-08-12 12:48 | disposition home or self-care (01) ==
LOC: EMR 09:15
PROVIDERS: Physician Assistant Medical; EMERGENCY PHYSICIAN Emergency Medicine; FAMILY PHYSICIAN Family Medicine
DX: M54.50 Low back pain, unspecified (principal); I25.10 Atherosclerotic heart disease of native coronary artery without angina pectoris; E10.9 Type 1 diabetes mellitus without complications; E78.00 Pure hypercholesterolemia, unspecified; I10 Essential (primary) hypertension; Z86.73 Personal history of transient ischemic attack (TIA), and cerebral infarction without residual deficits; Z95.5 Presence of coronary angioplasty implant and graft; Z79.4 Long term (current) use of insulin
CPT/HCPCS: 99284; 72110; 81003